=== PATIENT | male | born 1950 | race Caucasian/White ===

== ENCOUNTER 2020-07-16 11:13 | Outpatient (REF) | payer MEDICARE, SELFPAY ==
--- NOTE | 2020-07-16 11:21 | XR_ITS ---
EXAMINATION: XR RIBS, BILATERAL CLINICAL INFORMATION: pleurodynia. COMPARISON: None TECHNIQUE: 3 views of the bilateral ribs were obtained. FINDINGS: Lungs are clear. No consolidation, pneumothorax, or pleural effusion. The cardiomediastinal silhouette and pulmonary vasculature are normal. Osseous structures are unremarkable. Ribs are intact. No fractures are identified. The upper abdomen there is a rounded calcification compatible with gallstone unchanged compared to prior. XR/XR ribs BI 3V IMPRESSION: No acute disease.
== END 2020-07-16 11:14 | disposition home or self-care (01) ==
LOC: HO.XRAY 11:13
PROVIDERS: PCP Internal Medicine; Visit Provider Internal Medicine
DX: R07.81 Pleurodynia (principal)
CPT/HCPCS: 71110

== ENCOUNTER → 2021-07-27 13:50 | Outpatient (BNVA) | payer MEDICARE, SELFPAY | PROVIDERS: PCP Internal Medicine; Visit Provider Orthopaedic Surgery | DX: M65.311 Trigger thumb, right thumb (principal) | CPT/HCPCS: 20550; 99202; J1100 ==

== ENCOUNTER 2021-11-26 14:12 | Outpatient (REF) | payer MEDICARE, OTHER, SELFPAY ==
--- NOTE | ~2021-11-26 | XR_ITS ---
EXAMINATION: XR LUMBOSACRAL SPINE CLINICAL INFORMATION: Low back pain COMPARISON: Previous x-ray most recent April 2020 and June 2020 TECHNIQUE: Three views of the lumbosacral spine. FINDINGS: There is mild curvature of the lumbar spine to the right. Bone alignment is otherwise normal. No fracture or dislocation is seen. There is multilevel degenerative spondylosis. Disc spaces are normal. There is lower lumbar spine facet arthritis. There are calcifications projecting over both kidneys questionable for renal stones, largest measuring 1.3 cm projecting over the lower pole the right kidney. There are 2 calcifications in the pelvis questionable for bladder stones, largest measuring 1 x 1.4 cm. This is similar to previous exams. XR/XR lumbar spine 2-3V IMPRESSION: Degenerative changes. Probable bilateral renal and bladder stones.
== END 2021-11-26 14:13 | disposition home or self-care (01) ==
LOC: HO.XRAY 14:12
PROVIDERS: PCP Internal Medicine; Visit Provider Internal Medicine
DX: M54.50 Low back pain, unspecified (principal); Z91.81 History of falling
CPT/HCPCS: 72100

== ENCOUNTER 2022-11-03 11:06 | Outpatient (REF) | payer MEDICARE, SELFPAY ==
[2022-11-03 13:30] LABS: Anion Gap 13 (12-20); Blood Urea Nitrogen 12 mg/dL (9-16); Calcium 9.3 mg/dL (8.4-10.2); Carbon Dioxide 32 mmol/L (22-29); Chloride 98 mmol/L (96-108); Estimated Glomerular Filt Rate > 60; Glucose Random 91 mg/dL (60-115); Magnesium 2.1 mg/dL (1.6-2.6); Potassium 3.4 mmol/L (3.3-5.1); Sodium 140 mmol/L (135-145)
== END 2022-11-03 11:07 | disposition home or self-care (01) ==
LOC: HO.LAB 11:06
PROVIDERS: PCP Internal Medicine; Visit Provider Internal Medicine Cardiovascular Disease
DX: I10 Essential (primary) hypertension (principal)
CPT/HCPCS: 36415; 80048; 83735

== ENCOUNTER 2023-05-04 09:43 | Outpatient (AMB) | payer MEDICARE, SELFPAY ==
[2023-05-04 09:57] VITALS: BP 106/78; PULSE 56; O2SAT 98; BMI 26.1
--- NOTE | 2023-05-04 09:57 | A.OFFPC_ITS ---
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: No Accompanied by: Self / Same As Patient Allergies mirtazapine Adverse Reaction (Intermediate, Verified 05/04/23 10:18) dry mouth, metallic taste bupropion Adverse Reaction (Intermediate, Uncoded 05/04/23 10:36) muscle pain Medication List - Last Reconciled 05/04/23 by Ronen Frances MD alfuzosin ER 10 mg PO DAILY amlodipine 5 mg PO DAILY atorvastatin 40 mg PO DAILY 90 days carisoprodol 350 mg PO TID PRN 90 days dicyclomine 20 mg PO QID dutasteride 0.5 mg PO DAILY 90 days esomeprazole magnesium 40 mg PO DAILY gabapentin 300 mg PO TID 90 days hydrochlorothiazide 25 mg PO DAILY lisinopril 40 mg PO DAILY lorazepam 2 mg PO BID-TID PRN 90 days sertraline 200 mg (2 x 100 mg) PO DAILY 90 days Tobacco use date assessed: 05/04/23 Fall risk assessment: No Falls in past year Last assessed Fall Risk: 05/04/23 Dental Screening Dental Screen Date: 05/04/23 Did you have a dental visit in the last 12 months?: No Did you have a dental problem in the last 6 months where you did not have access to dental care?: No Was dental information given to patient?: Patient has dentist HPI Med review HPI Details Patient comes in today for his follow up visit - has not been back since January 2022 Relates that he was seen by cardiology for follow up about a month or so ago and was advised that his BP was all over the place States that cardiology tried increasing his Amlodipine again up to 5 mg QD and he seems to be tolerating his Rx so far He is still experiencing increased anxiety despite his current Rx (is on Sertraline 200 mg QD) - feels that his Rx used to help but not has not done much lately 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 his , who has a lot of medical issues and she often still wakes up in middle of night crying from pain and as a result, he himself is not getting much sleep at night He also is now admitting that he feels depressed in addition to experiencing increased anxiety often Relates that he often ends up drinking a lot of coffee to stay awake and to help increase his energy level but notes that this has not been successful Was on Mirtazapine 15 Q HS but stopped a while back as it was causing hime to experience increased dry mouth and giving him a metallic aftertaste in his mouth often as well as increased headaches He denies any chest pains, no shortness of breath No nausea / vomiting but reports experiencing a lot of recurrent stomach cramping and pain and frequent loose stools, which he thinks is related to his anxiety He had some follow up labs done at [facility] last month - to discuss his results [facility] Medical History Anxiety Benign essential hypertension Benign prostatic hyperplasia Bruxism Facet arthropathy, cervical GERD without esophagitis Insomnia Irritable bowel syndrome (IBS) Mixed hyperlipidemia Osteoarthritis of spine with radiculopathy, lumbar region Renal calculus Surgical History History of lithotripsy History of tonsillectomy Family History Father Acute CVA (cerebrovascular accident) CVD (cardiovascular disease) Mother Pancreatic cancer Brother Myocardial infarction Brother Hx of CABG CVD (cardiovascular disease) Social History Housing: House Alcohol intake: current Alcohol intake frequency: holidays/special occasions only Patient Tobacco Use Status: Former Tobacco user e-Cigarette/Vaping Use: Never Used Second Hand Smoke Exposure: Yes service: No Current occupational status: retired Cognitive needs: No Hearing needs: No Vision needs: Yes Questionnaire PHQ-9 Over the last 2 weeks, how often have you been bothered by any of the following problems? 1. Little interest or pleasure in doing things: several days 2. Feeling down, depressed, or hopeless: several days 3. Trouble falling or staying asleep, or sleeping too much: not at all 4. Feeling tired or having little energy: not at all 5. Poor appetite or overeating: not at all 6. Feeling bad about yourself - or that you are a failure or have let yourself or your family down: not at all 7. Trouble concentrating on things, such as reading the newspaper or watching television: not at all 8. Moving or speaking so slowly that other people could have noticed. Or the opposite - being so fidgety or restless that you have been moving around a lot more than usual: not at all 9. Thoughts that you would be better off or of hurting yourself in some way: not at all Total score: 2 Depression Screening Interpretation: Positive Depression Screening Follow-up: Existing condition, In treatment and New Medication prescribed 39257 - PHQ-9 Billing: Yes Source: Developed by Drs. Tone Jamil, Bertha Wilkerson, Cyril Duran and colleagues, with an educational jose from [employer]. Thrive Questionnaire Date Thrive assessed: 05/04/23 I am a: Patient What is your living situation today?: I have a steady place to live Within the past 12 months, did the food you bought not last and you didn't have the money to get more?: Never true Within the past 12 months, did you worry whether your food would run out before you got money to buy more?: Never true Do you have trouble paying for medicines?: No Do you have trouble getting transportation to medical appointments?: No Do you have trouble paying your heating and electricity bill?: No Do you have trouble taking care of your child, family member or friend?: No Do you have trouble with day-to-day activities such as bathing, preparing meals, shopping, managing finances, etc.?: No Are you currently unemployed and looking for a job?: No Are you interested in more education?: No Please select the resources that you would like help with: None Currently or been in a relationship where the following occur: no concerns reported AUDIT C Alcohol Use Questionnaire (AUDIT-C) 1. How often do you have a drink containing alcohol?: Monthly or less 2. How many drinks containing alcohol do you have on a typical day when you are drinking?: 1 or 2 3. How often do you have six or more drinks on one occasion?: Never Total Score: 1 Score Reviewed/Action Taken: Yes BHANU-7 AMB Questionnaire BHANU-7 Date BHANU - 7 assessed: 05/04/23 Feeling nervous, anxious, or on edge: 1 = Several days Not being able to stop or control worryin = Not at all Worrying too much about different things: 1 = Several days Trouble relaxin = Not at all Being so restless that it is hard to sit still: 0 = Not at all Becoming easily annoyed or irritable: 0 = Not at all Feeling afraid as if something awful might happen: 0 = Not at all Total BHANU-7 score (0-4 normal; 5-9 mild; 10-14 moderate; 15-21 severe): 2 Source: Developed by Drs. Tone Jamil, Bertha Wilkerson, Cyril Duran and colleagues, with an educational jose from [employer]. Review of Systems Const Denies chills, Reports difficulty sleeping, Reports fatigue, Denies fever(s) and Denies headache(s) ENT Denies dysphagia, Reports dizziness (occasionally - when he moves too quickly), Denies otalgia, Denies headache(s), Denies odynophagia and Denies sore throat Card Denies chest pain, Denies palpitations and Denies dyspnea Resp Denies cough and Denies dyspnea GI Details: states that he has not been eating well or on time lately due to his str ess/anxiety Denies abdominal pain, Reports bloating, Denies constipation, Reports GI cramping (at times), Denies dysphagia, Reports dyspepsia (occasional), Denies heartburn, Reports diarrhea (on and off - due to IBS), Reports loose stools (on and off - due to IBS), Denies nausea, Denies odynophagia and Denies vomiting Denies dysuria, Denies nocturia and Denies urinary frequency Musc Reports arthralgias (right thumb - trigger thumb) and Reports stiffness (right thumb - see HPI) Neuro Reports dizziness (occasionally - when he moves too quickly) and Denies headache(s) Psych Reports anxiety and Reports depression Endo Reports fatigue and Denies palpitations Physical exam (Primary Care) Vital Signs: Last Vital Signs Pulse 56 05/04/23 09:57 BP 106/78 05/04/23 09:57 Pulse Ox 98 05/04/23 09:57 Oxygen Delivery Method Room Air 05/04/23 09:57 BMI result Body Mass Index 26.1 Tobacco/Smoking Status: Tobacco use Status Tobacco use date assessed 05/04/23 05/04/23 10:02 Patient Tobacco Use Status Former Tobacco user 05/04/23 10:02 e-Cigarette/Vaping Use Never Used 05/04/23 10:02 PHQ-9: PHQ-9 Score PHQ-9: Total score 2 05/08/23 17:52 Depression Screening Interpretation: Positive Depression Screening Follow-up: Existing condition, In treatment and New Medication prescribed Thrive Assessment: Date of Thrive Assessment Date Thrive assessed 05/04/23 05/04/23 10:02 Currently or been in a relationship where the following occur: no concerns reported Const General: no acute distress and alert HENMT Throat: Yes posterior oropharynx normal and Yes tonsils normal (no TP congestion noted) Neck Neck: Yes no lymphadenopathy and Yes supple Resp Auscultation: clear to auscultation bilaterally, no rales and no wheezes Cardio Rate: regular rate Rhythm: regular rhythm Heart sounds: no murmurs GI Palpation (GI): Soft to palpation and nontender Auscultation: normal bowel sounds Extrem General: Yes no clubbing, cyanosis or edema Assessment and Plan Assessment & Plan (1) Benign essential hypertension: Code(s): I10 - Essential (primary) hypertension Plan: Reinforced low sodium diet - goal is systolic BP of at least 130 to 140 mm Continue Lisinopril 40 mg QD and HCTZ 25 mg Q AM Patient quit taking Amlodipine last year due to frequent dizziness while on the Rx but was started back on Amlodipine 5 mg QD by cardiology recently because of his poorly-controlled blood pressure - currently seems to be tolerating Amlidipine 5 mg QD so far Patient also appears to have a significant component of white coat syndrome and his systolic BPs seem to be much better consistently at home compared to his readings in the office He is reminded again monitor his BP closely and to follow up with his legal billing coordinator (Dr. Hinojosa) as scheduled (2) Mixed hyperlipidemia: Code(s): E78.2 - Mixed hyperlipidemia Plan: Results of his labs done at [facility] last month reviewed and discussed with patient Reinforced low cholesterol diet Continue Atorvastatin 40 mg QD (3) Irritable bowel syndrome (IBS): Code(s): K58.9 - Irritable bowel syndrome without diarrhea Qualifiers: Irritable bowel syndrome type: unspecified Qualified Code(s): K58.9 - Irritable bowel syndrome without diarrhea Plan: Continue Dicyclomine 20 mg TID PRN States that his IBS has been acting up often lately due to his increased anxiety Follow up with GI (Dr. Herrera) as scheduled (4) Osteoarthritis of spine with radiculopathy, lumbar region: Code(s): M47.26 - Other spondylosis with radiculopathy, lumbar region Plan: Lumbar spine x-rays done a few years ago showed (+) moderate lumbar spondylosis MRI done more recently showed findings suggesting bilateral nerve root impingement Repeat x-rays done in April 2020 revealed (+) degenerative change of the lumbar spine with right-sided facet arthropathy L4-S1 and probable right-sided L5 pars defect. Reinforced activity and weight-lifting restrictions again to help minimize his back pains Follow up with neurosurgery as scheduled (5) Facet arthropathy, cervical: Code(s): M47.812 - Spondylosis without myelopathy or radiculopathy, cervical region Plan: Cervical spine x-rays done initially showed (+) C2 irregularity which may be artifactual in nature but a type III C2 odontoid fracture cannot be excluded at the time Cervical spine CT done subsequently showed a normal appearance of the odontoid process. (+) multilevel cervical spondylosis and hypertrophic facet arthropathy, more prominent on the right side; severe right foraminal narrowing at C3-C4 and small central disc protrusion with significant right-sided facet arthropathy; moderate facet degeneration and shallow central disc protrusion with mild central canal stenosis at C4-C5 and severe right facet arthrosis with moderate right foraminal encroachment and a small central disc protrusion at C5- C6. Follow up with neurosurgery as scheduled (6) GERD without esophagitis: Code(s): K21.9 - Gastro-esophageal reflux disease without esophagitis Plan: Dietary restrictions reinforced Continue Nexium 40 mg QD (7) Benign prostatic hyperplasia: Code(s): N40.0 - Benign prostatic hyperplasia without lower urinary tract symptoms Qualifiers: Lower urinary tract symptom presence: symptoms absent Qualified Code(s): N40.0 - Benign prostatic hyperplasia without lower urinary tract symptoms Plan: Continue Dutasteride 0.5 mg QD Follow up with urology as scheduled (8) Renal calculus: Code(s): N20.0 - Calculus of kidney Plan: Currently asymptomatic - follow up with urology as scheduled (9) Insomnia: Code(s): G47.00 - Insomnia, unspecified Qualifiers: Insomnia type: unspecified Qualified Code(s): G47.00 - Insomnia, unspecified Plan: Sleep hygiene reinforced - is mostly related to his anxiety Was tried on Mirtazapine last year but he could not tolerate Rx due to side effects (10) Anxiety: Code(s): F41.9 - Anxiety disorder, unspecified Plan: Continue Lorazepam 2 mg BID PRN and Sertraline 200 mg QD Will start him additionally on Rexulti 1 mg QD (11) Bruxism: Code(s): 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 Plan: Continue use of mouth/teeth guard when sleeping at night Is mostly related to anxiety and to an old trauma / injury to his jaw - patient used to box (boxing) a lot when he was in middle school and high school Plan Follow up in 2 months Medications: New Rexulti (brexpiprazole) 1 mg PO DAILY 30 days 30 tabs 2RF NS Coding Level of Care Code Est Pt Level 4 (99602) Diagnoses Benign essential hypertension I10 Mixed hyperlipidemia E78.2 Irritable bowel syndrome (IBS) K58.9 Irritable bowel syndrome type: unspecified Osteoarthritis of spine with radiculopathy, lumbar region M47.26 Facet arthropathy, cervical M47.812 GERD without esophagitis K21.9 Benign prostatic hyperplasia N40.0 Lower urinary tract symptom presence: symptoms absent Renal calculus N20.0 Insomnia G47.00 Insomnia type: unspecified Anxiety F41.9 Bruxism F45.8
== END 2023-05-04 10:47 | disposition home or self-care (01) ==
PROVIDERS: PCP Internal Medicine; Visit Provider Internal Medicine
DX: I10 Essential (primary) hypertension (principal); K58.9 Irritable bowel syndrome, unspecified; K21.9 Gastro-esophageal reflux disease without esophagitis; F41.9 Anxiety disorder, unspecified; E78.2 Mixed hyperlipidemia; M47.26 Other spondylosis with radiculopathy, lumbar region; M47.812 Spondylosis without myelopathy or radiculopathy, cervical region; N40.0 Benign prostatic hyperplasia without lower urinary tract symptoms; N20.0 Calculus of kidney; G47.00 Insomnia, unspecified; F45.8 Other somatoform disorders
CPT/HCPCS: 99214

== ENCOUNTER 2023-07-04 13:41 | Outpatient (AMB) | payer MEDICARE, SELFPAY ==
[2023-07-04 13:53] VITALS: BP 140/70; PULSE 71; O2SAT 99; BMI 27.4
--- NOTE | 2023-07-04 13:53 | A.OFFPC_ITS ---
Vital Signs 07/04/23 13:53 Height 5 ft 9 in Weight 185 lb 4 oz BMI 27.4 BP 140/70 H Blood Pressure Location Lt brachial Position Sitting Pulse 71 Pulse Source Pulse Oximeter Pulse Oximetry (%) 99 Oxygen Delivery Method Room Air Intake Visit Reasons: depression/anxiety, hyperlipidemia, IBS Partner Alliance Manager Required: No Accompanied by: Self / Same As Patient Allergies mirtazapine Adverse Reaction (Intermediate, Verified 07/04/23 14:14) dry mouth, metallic taste bupropion Adverse Reaction (Intermediate, Uncoded 07/04/23 14:14) muscle pain Medication List - Last Reconciled 07/04/23 by Ronen Frances MD alfuzosin ER 10 mg PO DAILY amlodipine 5 mg PO DAILY atorvastatin 40 mg PO DAILY 90 days carisoprodol 350 mg PO TID PRN 90 days dicyclomine 20 mg PO QID dutasteride 0.5 mg PO DAILY 90 days esomeprazole magnesium 40 mg PO DAILY gabapentin 300 mg PO TID 90 days hydrochlorothiazide 25 mg PO DAILY lisinopril 40 mg PO DAILY lorazepam 2 mg PO BID-TID PRN 90 days Rexulti (brexpiprazole) 1 mg PO DAILY 30 days NS sertraline 200 mg (2 x 100 mg) PO DAILY 90 days Tobacco use date assessed: 07/04/23 Fall risk assessment: No Falls in past year Last assessed Fall Risk: 07/04/23 Dental Screening Dental Screen Date: 07/04/23 Did you have a dental visit in the last 12 months?: No Did you have a dental problem in the last 6 months where you did not have access to dental care?: No Was dental information given to patient?: No HPI depression/anxiety, hyperlipidemia, IBS HPI Details Patient comes in today for his follow up visit States that he is currently feeling a lot better and thinks that his current medications are finally working and his mood is under much better control - is presently on Sertraline 200 mg QD + Rexulti 1 mg QD He has gained a lot of weight lately and his blood pressure today here in the office is also higher than usual Patient is wondering if his recent weight gain is a side effect of either his Sertraline or Rexulti or both but he also admits that he has been doing a lot of late night eating lately and has been eating a lot of junk foods He denies any headaches or dizziness Denies any chest pains, no SOB No nausea/vomiting, no abdominal pain No change in bowel habits noted PFSH Medical History Bruxism Anxiety Insomnia Renal calculus Irritable bowel syndrome (IBS) Benign prostatic hyperplasia GERD without esophagitis Facet arthropathy, cervical Osteoarthritis of spine with radiculopathy, lumbar region Mixed hyperlipidemia Benign essential hypertension Surgical History History of lithotripsy History of tonsillectomy Family History Father Acute CVA (cerebrovascular accident) CVD (cardiovascular disease) Mother Pancreatic cancer Brother Myocardial infarction Brother Hx of CABG CVD (cardiovascular disease) Social History Housing: House Alcohol intake: current Alcohol intake frequency: holidays/special occasions only Patient Tobacco Use Status: Former Tobacco user e-Cigarette/Vaping Use: Never Used Second Hand Smoke Exposure: Yes service: No Current occupational status: retired Cognitive needs: No Hearing needs: No Vision needs: Yes Questionnaire PHQ-9 Over the last 2 weeks, how often have you been bothered by any of the following problems? Depression Screening Interpretation: Positive Depression Screening Follow-up: Existing condition, In treatment and New Medication prescribed Depression Screening Done: Yes Source: Developed by Drs. Tone Jamil, Cyril Olivarez and colleagues, with an educational jose from [employer]. Thrive Questionnaire Date Thrive assessed: 05/04/23 Currently or been in a relationship where the following occur: no concerns reported BHANU-7 AMB Questionnaire BHANU-7 Date BHANU - 7 assessed: 05/04/23 Source: Developed by Bertha Canales Kurt Kroenke and colleagues, with an educational jose from [employer]. Review of Systems Const Reports difficulty sleeping, Denies fatigue, Denies fever(s) and Denies headache(s) ENT Denies dysphagia, Reports dizziness (occasionally - when he moves too quickly), Denies headache(s), Denies odynophagia and Denies sore throat Card Denies chest pain, Denies palpitations and Denies dyspnea Resp Denies cough and Denies dyspnea GI Details: states that he has not been eating well or on time lately due to his stress/anxiety Denies abdominal pain, Reports bloating, Denies constipation, Denies dysphagia, Reports dyspepsia (occasional), Denies heartburn, Reports diarrhea (on and off - due to IBS), Reports loose stools (on and off - due to IBS), Denies nausea, Denies odynophagia and Denies vomiting Denies dysuria, Denies nocturia and Denies urinary frequency Musc Reports arthralgias (right thumb - trigger thumb) and Reports stiffness (right thumb - see HPI) Neuro Reports dizziness (occasionally - when he moves too quickly) and Denies headache(s) Psych Reports anxiety and Reports depression Endo Denies fatigue and Denies palpitations Physical exam (Primary Care) Vital Signs: Last Vital Signs Pulse 71 07/04/23 13:53 BP 140/70 H 07/04/23 13:53 Pulse Ox 99 07/04/23 13:53 Oxygen Delivery Method Room Air 07/04/23 13:53 BMI result Body Mass Index 27.4 Tobacco/Smoking Status: Tobacco use Status Tobacco use date assessed 07/04/23 07/04/23 13:57 Patient Tobacco Use Status Former Tobacco user 07/04/23 13:57 e-Cigarette/Vaping Use Never Used 07/04/23 13:57 Depression Screening Interpretation: Positive Depression Screening Follow-up: Existing condition, In treatment and New Medication prescribed Thrive Assessment: Date of Thrive Assessment Date Thrive assessed 05/04/23 07/04/23 13:57 Currently or been in a relationship where the following occur: no concerns reported Const General: no acute distress and alert HENMT Throat: Yes posterior oropharynx normal and Yes tonsils normal (no TP congestion noted) Neck Neck: Yes no lymphadenopathy and Yes supple Resp Auscultation: clear to auscultation bilaterally, no rales and no wheezes Cardio Rate: regular rate Rhythm: regular rhythm Heart sounds: no murmurs GI Palpation (GI): Soft to palpation and nontender Auscultation: normal bowel sounds Extrem General: Yes no clubbing, cyanosis or edema Assessment and Plan Assessment & Plan (1) Benign essential hypertension: Code(s): I10 - Essential (primary) hypertension Plan: Reinforced low sodium diet - goal is systolic BP of at least 130 to 140 mm Continue Lisinopril 40 mg QD and HCTZ 25 mg Q AM Patient quit taking Amlodipine last year due to frequent dizziness while on the Rx but was started back on Amlodipine 5 mg QD by cardiology recently because of his poorly-controlled blood pressure - currently seems to be tolerating Amlidipine 5 mg QD so far Patient also appears to have a significant component of white coat syndrome and his systolic BPs seem to be much better consistently at home compared to his readings in the office He is reminded again monitor his BP closely and to follow up with his ship mate (Dr. Hinojosa) as scheduled (2) Mixed hyperlipidemia: Code(s): E78.2 - Mixed hyperlipidemia Plan: Reinforced low cholesterol diet Continue Atorvastatin 40 mg QD Will recheck his labs and fasting lipids in 4 months for follow-up or (3) Irritable bowel syndrome (IBS): Code(s): K58.9 - Irritable bowel syndrome without diarrhea Qualifiers: Irritable bowel syndrome type: unspecified Qualified Code(s): K58.9 - Irritable bowel syndrome without diarrhea Plan: Continue Dicyclomine 20 mg TID PRN States that his IBS has been acting up often lately due to his increased anxiety Follow up with GI (Dr. Herrera) as scheduled (4) Osteoarthritis of spine with radiculopathy, lumbar region: Code(s): M47.26 - Other spondylosis with radiculopathy, lumbar region Plan: Lumbar spine x-rays done a few years ago showed (+) moderate lumbar spondylosis MRI done more recently showed findings suggesting bilateral nerve root impingement Repeat x-rays done in April 2020 revealed (+) degenerative change of the lumbar spine with right-sided facet arthropathy L4-S1 and probable right-sided L5 pars defect. Reinforced activity and weight-lifting restrictions again to help minimize his back pains Follow up with neurosurgery as scheduled (5) Facet arthropathy, cervical: Code(s): M47.812 - Spondylosis without myelopathy or radiculopathy, cervical region Plan: Cervical spine x-rays done initially showed (+) C2 irregularity which may be artifactual in nature but a type III C2 odontoid fracture cannot be excluded at the time Cervical spine CT done subsequently showed a normal appearance of the odontoid process. (+) multilevel cervical spondylosis and hypertrophic facet arthropathy, more prominent on the right side; severe right foraminal narrowing at C3-C4 and small central disc protrusion with significant right-sided facet arthropathy; moderate facet degeneration and shallow central disc protrusion with mild central canal stenosis at C4-C5 and severe right facet arthrosis with moderate right foraminal encroachment and a small central disc protrusion at C5- C6. Follow up with neurosurgery as scheduled (6) GERD without esophagitis: Code(s): K21.9 - Gastro-esophageal reflux disease without esophagitis Plan: Dietary restrictions reinforced Continue Nexium 40 mg QD (7) Benign prostatic hyperplasia: Code(s): N40.0 - Benign prostatic hyperplasia without lower urinary tract symptoms Qualifiers: Lower urinary tract symptom presence: symptoms absent Qualified Code(s): N40.0 - Benign prostatic hyperplasia without lower urinary tract symptoms Plan: Continue Dutasteride 0.5 mg QD Follow up with urology as scheduled (8) Renal calculus: Code(s): N20.0 - Calculus of kidney Plan: Currently asymptomatic - follow up with urology as scheduled (9) Insomnia: Code(s): G47.00 - Insomnia, unspecified Qualifiers: Insomnia type: unspecified Qualified Code(s): G47.00 - Insomnia, unspecified Plan: Sleep hygiene reinforced - is mostly related to his anxiety Was tried on Mirtazapine last year but he could not tolerate Rx due to side effects (10) Anxiety: Code(s): F41.9 - Anxiety disorder, unspecified Plan: Patient feels that his anxiety is finally doing much better on his current meds Continue Lorazepam 2 mg BID PRN, Sertraline 200 mg QD and Rexulti 1 mg QD (11) Bruxism: Code(s): 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 Panel Fast 4 Months E78.00 - Pure hypercholesterolemia, unspecified Lipid Panel 4 Months E78.00 - Pure hypercholesterolemia, unspecified Complete Blood Count Auto Diff 4 Months I10 - Essential (primary) hypertension Coding Level of Care Code Est Pt Level 4 (75006) Diagnoses Benign essential hypertension I10 Mixed hyperlipidemia E78.2 Irritable bowel syndrome, unspecified type K58.9 Irritable bowel syndrome type: unspecified Osteoarthritis of spine with radiculopathy, lumbar region M47.26 Facet arthropathy, cervical M47.812 GERD without esophagitis K21.9 Benign prostatic hyperplasia without lower urinary tract symptoms N40.0 Lower urinary tract symptom presence: symptoms absent Renal calculus N20.0 Insomnia, unspecified type G47.00 Insomnia type: unspecified Anxiety F41.9 Bruxism F45.8
== END 2023-07-04 14:29 | disposition home or self-care (01) ==
PROVIDERS: PCP Internal Medicine; Visit Provider Internal Medicine
DX: I10 Essential (primary) hypertension (principal); E78.2 Mixed hyperlipidemia; K58.9 Irritable bowel syndrome, unspecified; M47.26 Other spondylosis with radiculopathy, lumbar region; M47.812 Spondylosis without myelopathy or radiculopathy, cervical region; K21.9 Gastro-esophageal reflux disease without esophagitis; N40.0 Benign prostatic hyperplasia without lower urinary tract symptoms; N20.0 Calculus of kidney; G47.00 Insomnia, unspecified; F41.9 Anxiety disorder, unspecified; F45.8 Other somatoform disorders
CPT/HCPCS: 99214

== ENCOUNTER 2024-02-14 13:50 | Outpatient (AMB) | payer MEDICARE, SELFPAY ==
[2024-02-14 13:51] VITALS: BP 118/60; PULSE 64; O2SAT 97; BMI 27.8
--- NOTE | 2024-02-14 13:51 | A.OFFPC_ITS ---
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 Required: No Allergies mirtazapine Adverse Reaction (Intermediate, Verified 02/14/24 14:47) dry mouth, metallic taste bupropion Adverse Reaction (Intermediate, Uncoded 02/14/24 14:47) muscle pain Medication List - Last Reconciled 02/14/24 by Ronen Frances MD alfuzosin ER 10 mg PO DAILY amlodipine 5 mg PO DAILY 90 days atorvastatin 40 mg PO DAILY 90 days carisoprodol 350 mg PO TID PRN 90 days dicyclomine 20 mg PO QID dutasteride 0.5 mg PO DAILY 90 days esomeprazole magnesium 40 mg PO DAILY gabapentin 300 mg PO TID 90 days hydrochlorothiazide 25 mg PO DAILY lisinopril 40 mg PO DAILY lorazepam 2 mg PO BID-TID PRN 90 days Rexulti (brexpiprazole) 1 mg PO DAILY 30 days NS sertraline 200 mg (2 x 100 mg) PO DAILY 90 days tizanidine 4 mg PO Q8H PRN 30 days Tobacco use date assessed: 02/14/24 Fall risk assessment: No Falls in past year Last assessed Fall Risk: 02/14/24 Dental Screening Dental Screen Date: 02/14/24 Did you have a dental visit in the last 12 months?: No Did you have a dental problem in the last 6 months where you did not have access to dental care?: No HPI hyperlipidemia, HTN, GERD, mood disorder HPI Details Patient comes in today for his follow up visit States that he feels okay but he is concerned that he has gained a lot of weight over the past few months Is wondering if this is due to his Rexulti He denies any headaches or dizziness Denies any chest pains, no SOB No nausea/vomiting, no abdominal pain No change in bowel habits noted Adds that he has not been able to get his Carisoprodol Rx refilled - states that his pharmacist is telling him that his insurance will no longer approve it and that he has to try a different muscle relaxant States that he even offered to pay for the Rx [id number] but his pharmacist told him they cannot do it He has not had any follow up labs done recently [facility] Medical History (Updated 02/14/24 @ 15:05 by Ronen Frances MD) Overweight (BMI 25.0-29.9) Bruxism Anxiety Insomnia Renal calculus Irritable bowel syndrome (IBS) Benign prostatic hyperplasia GERD without esophagitis Facet arthropathy, cervical Osteoarthritis of spine with radiculopathy, lumbar region Mixed hyperlipidemia Benign essential hypertension Surgical History History of lithotripsy History of tonsillectomy Family History Father Acute CVA (cerebrovascular accident) CVD (cardiovascular disease) Mother Pancreatic cancer Brother Myocardial infarction Brother Hx of CABG CVD (cardiovascular disease) Social History Housing: House Alcohol intake: current Alcohol intake frequency: holidays/special occasions only Patient Tobacco Use Status: Former Tobacco user e-Cigarette/Vaping Use: Never Used Second Hand Smoke Exposure: Yes service: No Current occupational status: retired Cognitive needs: No Hearing needs: No Vision needs: Yes Questionnaire PHQ-9 Over the last 2 weeks, how often have you been bothered by any of the following problems? 1. Little interest or pleasure in doing things: not at all 2. Feeling down, depressed, or hopeless: not at all 3. Trouble falling or staying asleep, or sleeping too much: not at all 4. Feeling tired or having little energy: not at all 5. Poor appetite or overeating: not at all 6. Feeling bad about yourself - or that you are a failure or have let yourself or your family down: not at all 7. Trouble concentrating on things, such as reading the newspaper or watching television: not at all 8. Moving or speaking so slowly that other people could have noticed. Or the opposite - being so fidgety or restless that you have been moving around a lot more than usual: not at all 9. Thoughts that you would be better off or of hurting yourself in some way: not at all Total score: 0 Depression Screening Interpretation: Negative Depression Screening Done: Yes 06144 - PHQ-9 Billing: Yes Source: Developed by Drs. Tone Jamil, Bertha Wilkerson, Cyril Duran and colleagues, with an educational jose from [employer]. Thrive Questionnaire Date Thrive assessed: 02/14/24 I am a: Patient What is your living situation today?: I have a steady place to live Within the past 12 months, did the food you bought not last and you didn't have the money to get more?: Never true Within the past 12 months, did you worry whether your food would run out before you got money to buy more?: Never true Do you have trouble paying for medicines?: No Do you have trouble getting transportation to medical appointments?: No Do you have trouble paying your heating and electricity bill?: No Do you have trouble taking care of your child, family member or friend?: No Do you have trouble with day-to-day activities such as bathing, preparing meals, shopping, managing finances, etc.?: No Are you currently unemployed and looking for a job?: No Are you interested in more education?: No Please select the resources that you would like help with: None Currently or been in a relationship where the following occur: no concerns reported THRIVE Score: 0 AUDIT C Alcohol Use Questionnaire (AUDIT-C) 1. How often do you have a drink containing alcohol?: Monthly or less 2. How many drinks containing alcohol do you have on a typical day when you are drinking?: 1 or 2 3. How often do you have six or more drinks on one occasion?: Never Total Score: 1 Score Reviewed/Action Taken: Yes BHANU-7 AMB Questionnaire BHANU-7 Date BHANU - 7 assessed: 02/14/24 Feeling nervous, anxious, or on edge: 0 = Not at all Not being able to stop or control worryin = Not at all Worrying too much about different things: 0 = Not at all Trouble relaxin = Not at all Being so restless that it is hard to sit still: 0 = Not at all Becoming easily annoyed or irritable: 0 = Not at all Feeling afraid as if something awful might happen: 0 = Not at all Total BHANU-7 score (0-4 normal; 5-9 mild; 10-14 moderate; 15-21 severe): 0 Source: Developed by Drs. Tone Jamil, Bertha Wilkerson, Cyril Duran and colleagues, with an educational jose from [employer]. BHANU-7 Assessment Billing BHANU-7 Assessment Tool: BHANU-7 Assessment 22084 Review of Systems Const Reports difficulty sleeping, Denies fatigue, Denies fever(s) and Denies headache(s) ENT Denies dysphagia, Denies dizziness, Denies otalgia, Denies headache(s), Denies neck pain, Denies odynophagia and Denies sore throat Card Denies chest pain, Denies palpitations and Denies dyspnea Resp Denies cough and Denies dyspnea GI Denies abdominal pain, Denies constipation, Denies dysphagia, Denies heartburn, Reports diarrhea (on and off - due to IBS), Reports loose stools (on and off - due to IBS), Denies nausea, Denies odynophagia and Denies vomiting Denies difficulty urinating, Denies dysuria, Denies nocturia and Denies urinary frequency Musc Denies back pain, Reports arthralgias (right thumb - trigger thumb) and Denies neck pain Skin/Breast Denies rash Neuro Denies dizziness and Denies headache(s) Psych Reports anxiety and Reports depression Endo Denies fatigue and Denies palpitations Physical exam (Primary Care) Vital Signs: Last Vital Signs Pulse 64 02/14/24 13:51 BP 118/60 02/14/24 13:51 Pulse Ox 97 02/14/24 13:51 Oxygen Delivery Method Room Air 02/14/24 13:51 BMI result Body Mass Index 27.8 Tobacco/Smoking Status: Tobacco use Status Tobacco use date assessed 02/14/24 02/14/24 13:52 Patient Tobacco Use Status Former Tobacco user 02/14/24 13:52 e-Cigarette/Vaping Use Never Used 02/14/24 13:52 PHQ-9: PHQ-9 Score PHQ-9: Total score 0 02/14/24 14:09 Depression Screening Interpretation: Negative Thrive Assessment: Date of Thrive Assessment Date Thrive assessed 02/14/24 02/14/24 13:52 Currently or been in a relationship where the following occur: no concerns reported Const General: no acute distress and alert HENMT Ears: TM's normal bilaterally and EAC's normal Throat: Yes posterior oropharynx normal and Yes tonsils normal (no TP congestion noted) Neck Neck: Yes no lymphadenopathy and Yes supple Thyroid: Thyroid normal Resp Auscultation: clear to auscultation bilaterally, no rales and no wheezes Cardio Rate: regular rate Rhythm: regular rhythm Heart sounds: no murmurs GI Palpation (GI): Soft to palpation and nontender Auscultation: normal bowel sounds General: Yes no CVA tenderness Back/Spine/Pelvis Back: no CVA tenderness Thoracic/Lumbar Spine: No lumbar spinal tenderness Skin Rashes: no rashes Extrem General: Yes no clubbing, cyanosis or edema Assessment and Plan Assessment & Plan (1) Benign essential hypertension: Code(s): I10 - Essential (primary) hypertension Plan: Reinforced low sodium diet - goal is systolic BP of at least 130 to 140 mm Continue Lisinopril 40 mg QD, HCTZ 25 mg Q AM and Amlodipine 5 mg QD He is reminded again monitor his BP closely and to follow up with 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 Hinojosa) as scheduled (2) Mixed hyperlipidemia: Code(s): E78.2 - Mixed hyperlipidemia Plan: He has not had any follow up labs done in a while now although he states that he had some labs done for his valve pipe irrigator a couple of months ago over at [facility] Reinforced low cholesterol diet Continue Atorvastatin 40 mg QD Will recheck his labs and fasting lipids LALO for follow-up - lab orders are printed out and handed to patient as he would like to get these done over at [facility] as he lives over in the [facility] (3) Irritable bowel syndrome (IBS): Code(s): K58.9 - Irritable bowel syndrome without diarrhea Qualifiers: Irritable bowel syndrome type: unspecified Qualified Code(s): K58.9 - Irritable bowel syndrome without diarrhea Plan: Continue Dicyclomine 20 mg TID PRN Follow up with GI (Dr. Herrera) as scheduled (4) Osteoarthritis of spine with radiculopathy, lumbar region: Code(s): M47.26 - Other spondylosis with radiculopathy, lumbar region Plan: Lumbar spine x-rays done a few years ago showed (+) moderate lumbar spondylosis MRI done more recently showed findings suggesting bilateral nerve root impingement Repeat x-rays done in April 2020 revealed (+) degenerative change of the lumbar spine with right-sided facet arthropathy L4-S1 and probable right-sided L5 pars defect. Reinforced activity and weight-lifting restrictions again to help minimize his back pains Follow up with neurosurgery as scheduled (5) Facet arthropathy, cervical: Code(s): M47.812 - Spondylosis without myelopathy or radiculopathy, cervical region Plan: Cervical spine x-rays done initially showed (+) C2 irregularity which may be artifactual in nature but a type III C2 odontoid fracture cannot be excluded at the time Cervical spine CT done subsequently showed a normal appearance of the odontoid process. (+) multilevel cervical spondylosis and hypertrophic facet arthropathy, more prominent on the right side; severe right foraminal narrowing at C3-C4 and small central disc protrusion with significant right-sided facet arthropathy; moderate facet degeneration and shallow central disc protrusion with mild central canal stenosis at C4-C5 and severe right facet arthrosis with moderate right foraminal encroachment and a small central disc protrusion at C5- C6. Follow up with neurosurgery as scheduled (6) GERD without esophagitis: Code(s): K21.9 - Gastro-esophageal reflux disease without esophagitis Plan: Dietary restrictions reinforced Continue Nexium 40 mg QD (7) Benign prostatic hyperplasia: Code(s): N40.0 - Benign prostatic hyperplasia without lower urinary tract symptoms Qualifiers: Lower urinary tract symptom presence: symptoms absent Qualified Code(s): N40.0 - Benign prostatic hyperplasia without lower urinary tract symptoms Plan: Continue Dutasteride 0.5 mg QD and Alfusozin ER 10 mg QD Follow up with urology as scheduled (8) Renal calculus: Code(s): N20.0 - Calculus of kidney Plan: Currently asymptomatic - follow up with urology as scheduled (9) Insomnia: Code(s): G47.00 - Insomnia, unspecified Qualifiers: Insomnia type: unspecified Qualified Code(s): G47.00 - Insomnia, unspecified Plan: Sleep hygiene reinforced - is mostly related to his anxiety Was tried on Mirtazapine last year but he could not tolerate Rx due to side effects (10) Anxiety: Code(s): F41.9 - Anxiety disorder, unspecified Plan: Patient feels that his anxiety is finally doing much better on his current meds Continue Lorazepam 2 mg BID PRN, Sertraline 200 mg QD and Rexulti 1 mg QD (11) Bruxism: Code(s): 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 Plan: Continue use of mouth/teeth guard when sleeping at night Is mostly related to anxiety and to an old trauma / injury to his jaw - patient used to box (boxing) a lot when he was in middle school and high school (12) Overweight (BMI 25.0-29.9): Code(s): E66.3 - Overweight Plan: Reinforced diet/exercise as tolerated/lose weight - he has gained a lot of weight (about 10 pounds) over the past few months Have advised that theoretically, Rexulti can also cause weight gain as it belongs to the class of atypical antipsychotics, which can increase one's appetite I have advised him to try working on his eating habits first and knowing now how the medicine affects him, then he can make a conscious effort of staying away from eating after dinner and late at night If this does not work, then we can try switching him over to a different Rx, which may or may not necessarily help much with his weight at this point Plan Follow up in 4 months Orders: Orders TSH reflex Free T4 Today E78.00 - Pure hypercholesterolemia, unspecified Vitamin D 25-OH Total Today E55.9 - Vitamin D deficiency, unspecified UA CC w/rflx Micro + Cult Today R30.0 - Dysuria Hemoglobin A1c Today R73.01 - Impaired fasting glucose Medications: New tizanidine 4 mg PO Q8H 30 days PRN 90 tabs 0RF muscle spasms Coding Level of Care Code Est Pt Level 4 (37447) Complex EM visit Add On G2211 Diagnoses Benign essential hypertension I10 Mixed hyperlipidemia E78.2 Irritable bowel syndrome, unspecified type K58.9 Irritable bowel syndrome type: unspecified Osteoarthritis of spine with radiculopathy, lumbar region M47.26 Facet arthropathy, cervical M47.812 GERD without esophagitis K21.9 Benign prostatic hyperplasia without lower urinary tract symptoms N40.0 Lower urinary tract symptom presence: symptoms absent Renal calculus N20.0 Insomnia, unspecified type G47.00 Insomnia type: unspecified Anxiety F41.9 Bruxism F45.8 Overweight (BMI 25.0-29.9) E66.3 Additional Codes BHANU-7 Assessment Billing - BHANU-7 Assessment Tool: BHANU-7 Assessment 38386 ([id number])
== END 2024-02-14 15:01 | disposition home or self-care (01) ==
PROVIDERS: PCP Internal Medicine; Visit Provider Internal Medicine
DX: I10 Essential (primary) hypertension (principal); E78.2 Mixed hyperlipidemia; K58.9 Irritable bowel syndrome, unspecified; M47.26 Other spondylosis with radiculopathy, lumbar region; M47.812 Spondylosis without myelopathy or radiculopathy, cervical region; K21.9 Gastro-esophageal reflux disease without esophagitis; N40.0 Benign prostatic hyperplasia without lower urinary tract symptoms; N20.0 Calculus of kidney; G47.00 Insomnia, unspecified; F41.9 Anxiety disorder, unspecified; F45.8 Other somatoform disorders; E66.3 Overweight
CPT/HCPCS: 99214; G2211

== ENCOUNTER 2024-06-17 14:30 | Outpatient (AMB) | payer MEDICARE, SELFPAY ==
[2024-06-17 14:58] VITALS: BP 124/72; PULSE 75; O2SAT 98; BMI 27.9
--- NOTE | 2024-06-17 14:58 | MHC.PC.OV ---
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 Required: No Accompanied by: Self / Same As Patient Allergies mirtazapine Adverse Reaction (Intermediate, Verified 10/18/24 15:37) dry mouth, metallic taste tizanidine Adverse Reaction (Intermediate, Verified 10/18/24 15:37) Fatigued bupropion Adverse Reaction (Intermediate, Uncoded 10/18/24 15:37) muscle pain Medication List - Last Reconciled 06/17/24 by Ronen Frances MD alfuzosin ER 10 mg PO DAILY amlodipine 5 mg PO DAILY 90 days atorvastatin 40 mg PO DAILY 90 days baclofen 10 mg PO BID 10 days carisoprodol 350 mg PO TID PRN 90 days cyclobenzaprine 5 mg PO BID PRN 15 days dicyclomine 20 mg PO QID dutasteride 0.5 mg PO DAILY 90 days esomeprazole magnesium 40 mg PO DAILY gabapentin 300 mg PO TID 90 days hydrochlorothiazide 25 mg PO DAILY lisinopril 40 mg PO DAILY lorazepam 2 mg PO BID-TID PRN 90 days methocarbamol 500 mg PO TID PRN Rexulti (brexpiprazole) 1 mg PO DAILY 30 days NS sertraline 200 mg (2 x 100 mg) PO DAILY 90 days Tobacco use date assessed: 06/17/24 Fall risk assessment: No Falls in past year Last assessed Fall Risk: 06/17/24 Dental Screening Dental Screen Date: 06/17/24 Did you have a dental visit in the last 12 months?: No Did you have a dental problem in the last 6 months where you did not have access to dental care?: No Was dental information given to patient?: No HPI 4mth f/u HPI Details Patient comes in today for his follow-up visit States that he feels okay He denies any headaches or dizziness Denies any chest pains, no increased shortness of breath No nausea/vomiting, no abdominal pain No change in bowel habits noted He still has chronic pain over his neck and lower back but states that these have been adequately controlled on his current medications recently He had his follow-up labs done at [facility] last month - to discuss his results [facility] Medical History Overweight (BMI 25.0-29.9) Bruxism Anxiety Insomnia Renal calculus Irritable bowel syndrome (IBS) Benign prostatic hyperplasia GERD without esophagitis Facet arthropathy, cervical Osteoarthritis of spine with radiculopathy, lumbar region Mixed hyperlipidemia Benign essential hypertension Surgical History History of lithotripsy History of tonsillectomy Family History Father Acute CVA (cerebrovascular accident) CVD (cardiovascular disease) Mother Pancreatic cancer Brother Myocardial infarction Brother Hx of CABG CVD (cardiovascular disease) Social History Housing: House Alcohol intake: current Alcohol intake frequency: holidays/special occasions only Patient Tobacco Use Status: Former Tobacco user e-Cigarette/Vaping Use: Never Used Second Hand Smoke Exposure: Yes service: No Current occupational status: retired Cognitive needs: No Hearing needs: No Vision needs: Yes Questionnaire PHQ-9 Over the last 2 weeks, how often have you been bothered by any of the following problems? 1. Little interest or pleasure in doing things: not at all 2. Feeling down, depressed, or hopeless: not at all 3. Trouble falling or staying asleep, or sleeping too much: not at all 4. Feeling tired or having little energy: not at all 5. Poor appetite or overeating: not at all 6. Feeling bad about yourself - or that you are a failure or have let yourself or your family down: not at all 7. Trouble concentrating on things, such as reading the newspaper or watching television: not at all 8. Moving or speaking so slowly that other people could have noticed. Or the opposite - being so fidgety or restless that you have been moving around a lot more than usual: not at all 9. Thoughts that you would be better off or of hurting yourself in some way: not at all Total score: 0 Depression Screening Interpretation: Negative Depression Screening Done: Yes 03415 - PHQ-9 Billing: Yes Source: Developed by Drs. Tone Jamil, Bertha Wilkerson, Cyril Duran and colleagues, with an educational jose from [employer]. Thrive Questionnaire Date Thrive assessed: 06/17/24 I am a: Patient What is your living situation today?: I have a steady place to live Within the past 12 months, did the food you bought not last and you didn't have the money to get more?: Never true Within the past 12 months, did you worry whether your food would run out before you got money to buy more?: Never true Do you have trouble paying for medicines?: No Do you have trouble getting transportation to medical appointments?: No Do you have trouble paying your heating and electricity bill?: No Do you have trouble taking care of your child, family member or friend?: No Do you have trouble with day-to-day activities such as bathing, preparing meals, shopping, managing finances, etc.?: No Are you currently unemployed and looking for a job?: No Are you interested in more education?: No Please select the resources that you would like help with: None Currently or been in a relationship where the following occur: No concerns reported THRIVE Score: 0 AUDIT C Alcohol Use Questionnaire (AUDIT-C) 1. How often do you have a drink containing alcohol?: Monthly or less 2. How many drinks containing alcohol do you have on a typical day when you are drinking?: 1 or 2 Total Score: 1 Score Reviewed/Action Taken: Yes BHANU-7 AMB Questionnaire BHANU-7 Date BHANU - 7 assessed: 06/17/24 Feeling nervous, anxious, or on edge: 0 = Not at all Not being able to stop or control worryin = Not at all Worrying too much about different things: 0 = Not at all Trouble relaxin = Not at all Being so restless that it is hard to sit still: 0 = Not at all Becoming easily annoyed or irritable: 0 = Not at all Feeling afraid as if something awful might happen: 0 = Not at all Total BHANU-7 score (0-4 normal; 5-9 mild; 10-14 moderate; 15-21 severe): 0 Source: Developed by Bertha Canales Kurt Kroenke and colleagues, with an educational jose from [employer]. BHANU-7 Assessment Billing BHANU-7 Assessment Tool: BHANU-7 Assessment 12276 Review of Systems Const Denies chills, Reports difficulty sleeping, Reports fatigue, Denies fever(s) and Denies headache(s) ENT Denies dysphagia, Denies dizziness, Denies otalgia, Denies headache(s), Reports neck pain (chronic), Denies odynophagia and Denies sore throat Card Denies chest pain, Denies palpitations and Denies dyspnea Resp Denies chest congestion, Denies cough, Denies dyspnea and Denies wheezing GI Denies abdominal pain, Denies constipation, Denies dysphagia, Denies heartburn, Reports diarrhea (on and off - due to IBS), Reports loose stools (on and off - due to IBS), Denies nausea, Denies odynophagia and Denies vomiting Denies difficulty urinating, Denies dysuria, Denies nocturia and Denies urinary frequency Musc Reports back pain (chronic) and Reports neck pain (chronic) Skin/Breast Denies rash Neuro Denies dizziness and Denies headache(s) Psych Reports anxiety and Reports depression Endo Reports fatigue and Denies palpitations Aller/Immun Denies wheezing Physical exam (Primary Care) Vital Signs: Last Vital Signs Pulse 75 06/17/24 14:58 BP 124/72 06/17/24 14:58 Pulse Ox 98 06/17/24 14:58 Oxygen Delivery Method Room Air 06/17/24 14:58 BMI result Body Mass Index 27.9 Tobacco/Smoking Status: Tobacco use Status Tobacco use date assessed 06/17/24 06/17/24 14:59 Patient Tobacco Use Status Former Tobacco user 06/17/24 14:59 e-Cigarette/Vaping Use Never Used 06/17/24 14:59 PHQ-9: PHQ-9 Score PHQ-9: Total score 0 06/17/24 15:42 Depression Screening Interpretation: Negative Thrive Assessment: Date of Thrive Assessment Date Thrive assessed 06/17/24 06/17/24 14:59 Currently or been in a relationship where the following occur: No concerns reported Const General: no acute distress and alert HENMT Ears: TM's normal bilaterally and EAC's normal Throat: Yes posterior oropharynx normal and Yes tonsils normal (no TP congestion noted) Neck Neck: No lymphadenopathy Thyroid: Thyroid normal Resp Auscultation: clear to auscultation bilaterally, no rales and no wheezes Cardio Rate: regular rate Rhythm: regular rhythm Heart sounds: no murmurs GI Palpation (GI): Soft to palpation and nontender Auscultation: normal bowel sounds General: Yes no CVA tenderness Back/Spine/Pelvis Back: no CVA tenderness Cervical Spine: Cervical spine tenderness Thoracic/Lumbar Spine: lumbar spinal tenderness Skin Rashes: no rashes Extrem General: Yes no clubbing, cyanosis or edema Coding Level of Care Code Est Pt Level 4 (12329) Diagnoses Benign essential hypertension I10 Mixed hyperlipidemia E78.2 Irritable bowel syndrome, unspecified type K58.9 Irritable bowel syndrome type: unspecified Osteoarthritis of spine with radiculopathy, lumbar region M47.26 Facet arthropathy, cervical M47.812 GERD without esophagitis K21.9 Benign prostatic hyperplasia without lower urinary tract symptoms N40.0 Lower urinary tract symptom presence: symptoms absent Renal calculus N20.0 Insomnia, unspecified type G47.00 Insomnia type: unspecified Anxiety F41.9 Bruxism F45.8 Overweight (BMI 25.0-29.9) E66.3 Additional Codes BHANU-7 Assessment Billing - BHANU-7 Assessment Tool: BHANU-7 Assessment 20913 ([id number]) Assessment & Plan Assessment & Plan (1) Benign essential hypertension: Code(s): I10 - Essential (primary) hypertension Category: Medical Plan: Reinforced low sodium diet - goal is systolic BP of at least 130 to 140 mm Continue Lisinopril 40 mg QD, HCTZ 25 mg Q AM and Amlodipine 5 mg QD He is reminded again to continue monitoring his BP closely (2) Mixed hyperlipidemia: Code(s): E78.2 - Mixed hyperlipidemia Category: Medical Plan: Results of his labs done at [facility] last month reviewed and discussed with patient Reinforced low cholesterol diet Continue Atorvastatin 40 mg QD Will recheck his labs and fasting lipids in 4 months for follow-up (3) Irritable bowel syndrome (IBS): Code(s): K58.9 - Irritable bowel syndrome, unspecified Category: Medical Qualifiers: Irritable bowel syndrome type: unspecified Qualified Code(s): K58.9 - Irritable bowel syndrome without diarrhea Plan: Continue Dicyclomine 20 mg TID PRN Follow up with GI (Dr. Herrera) as scheduled (4) Osteoarthritis of spine with radiculopathy, lumbar region: Code(s): M47.26 - Other spondylosis with radiculopathy, lumbar region Category: Medical Plan: Lumbar spine x-rays done a few years ago showed (+) moderate lumbar spondylosis MRI done more recently revealed findings suggestive of bilateral nerve root impingement Repeat x-rays done in April 2020 revealed (+) degenerative change of the lumbar spine with right-sided facet arthropathy at L4-S1 and probable right-sided L5 pars defect. Reinforced activity and weight-lifting restrictions to minimize aggravating his back pains He has seen neurosurgery in the past but was advised that he has no surgical indication at the time and to follow-up with them again only on an as-needed basis (5) Facet arthropathy, cervical: Code(s): M47.812 - Spondylosis without myelopathy or radiculopathy, cervical region Category: Medical Plan: Cervical spine x-rays done initially showed (+) C2 irregularity which may be artifactual in nature but a type III C2 odontoid fracture cannot be excluded at the time Cervical spine CT done subsequently showed a normal appearance of the odontoid process; (+) multilevel cervical spondylosis and hypertrophic facet arthropathy, more prominent on the right side; severe right foraminal narrowing at C3-C4 and small central disc protrusion with significant right-sided facet arthropathy; moderate facet degeneration and shallow central disc protrusion with mild central canal stenosis at C4-C5 and severe right facet arthrosis with moderate right foraminal encroachment and a small central disc protrusion at C5-C6. He has been seen by neurosurgery in the past but was advised that he has no surgical indication at the time and to see them only on an as-needed basis (6) GERD without esophagitis: Code(s): K21.9 - Gastro-esophageal reflux disease without esophagitis Category: Medical Plan: Dietary restrictions reinforced Continue Nexium 40 mg QD (7) Benign prostatic hyperplasia: Code(s): N40.0 - Benign prostatic hyperplasia without lower urinary tract symptoms Category: Medical Qualifiers: Lower urinary tract symptom presence: symptoms absent Qualified Code(s): N40.0 - Benign prostatic hyperplasia without lower urinary tract symptoms Plan: Continue Dutasteride 0.5 mg QD and Alfusozin ER 10 mg QD Follow up with urology as scheduled (8) Renal calculus: Code(s): N20.0 - Calculus of kidney Category: Medical Plan: Patient currently remains asymptomatic Follow up with urology as scheduled (9) Insomnia: Code(s): G47.00 - Insomnia, unspecified Category: Medical Qualifiers: Insomnia type: unspecified Qualified Code(s): G47.00 - Insomnia, unspecified Plan: This is mostly related to his anxiety Sleep hygiene reinforced Patient was tried on Mirtazapine a couple of years ago but he could not tolerate Rx due to side effects (10) Anxiety: Code(s): F41.9 - Anxiety disorder, unspecified Category: Medical Plan: Patient feels that his anxiety is well-controlled on his current meds Continue Lorazepam 2 mg BID PRN, Sertraline 200 mg QD and Rexulti 1 mg QD (11) Bruxism: Code(s): 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 Category: Medical Plan: Continue use of mouth/teeth guard when sleeping at night This is mostly related to his anxiety and to an old trauma / injury to his jaw - patient used to participate in boxing as a sport frequently when he was in middle school and high school (12) Overweight (BMI 25.0-29.9): Code(s): E66.3 - Overweight Category: Medical Plan: Reinforced diet/exercise as tolerated/lose weight Plan Follow up in 4 months Orders: Orders Complete Blood Count Auto Diff 4 Months D64.9 - Anemia, unspecified TSH reflex Free T4 4 Months E78.00 - Pure hypercholesterolemia, unspecified UA CC w/rflx Micro + Cult 4 Months R30.0 - Dysuria Comprehensive [place]. Panel Fast 4 Months E78.00 - Pure hypercholesterolemia, unspecified Lipid Panel 4 Months E78.00 - Pure hypercholesterolemia, unspecified Vitamin D 25-OH Total 4 Months E55.9 - Vitamin D deficiency, unspecified
== END 2024-06-17 16:00 | disposition home or self-care (01) ==
PROVIDERS: PCP Internal Medicine; Visit Provider Internal Medicine
DX: I10 Essential (primary) hypertension (principal); E78.2 Mixed hyperlipidemia; K58.9 Irritable bowel syndrome, unspecified; M47.26 Other spondylosis with radiculopathy, lumbar region; M47.812 Spondylosis without myelopathy or radiculopathy, cervical region; K21.9 Gastro-esophageal reflux disease without esophagitis; N40.0 Benign prostatic hyperplasia without lower urinary tract symptoms; N20.0 Calculus of kidney; G47.00 Insomnia, unspecified; F41.9 Anxiety disorder, unspecified; F45.8 Other somatoform disorders; E66.3 Overweight

== ENCOUNTER → 2024-06-17 14:30 | Outpatient (BNVA) | payer MEDICARE, SELFPAY | PROVIDERS: PCP Internal Medicine; Visit Provider Internal Medicine | DX: D64.9 Anemia, unspecified (principal); E78.00 Pure hypercholesterolemia, unspecified; R30.0 Dysuria; E55.9 Vitamin D deficiency, unspecified | CPT/HCPCS: 96127; 99212 ==

== ENCOUNTER 2024-10-18 14:35 | Outpatient (AMB) | payer MEDICARE, SELFPAY ==
[2024-10-18 14:50] VITALS: BP 136/82; PULSE 65; O2SAT 98; BMI 28.5
--- NOTE | 2024-10-18 14:50 | A.OFFPC_ITS ---
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 Required: No Accompanied by: Self / Same As Patient Allergies mirtazapine Adverse Reaction (Intermediate, Verified 10/18/24 15:37) dry mouth, metallic taste tizanidine Adverse Reaction (Intermediate, Verified 10/18/24 15:37) Fatigued bupropion Adverse Reaction (Intermediate, Uncoded 10/18/24 15:37) muscle pain Medication List - Last Reconciled 10/18/24 by Ronen Frances MD alfuzosin ER 10 mg PO DAILY amlodipine 5 mg PO DAILY 90 days atorvastatin 40 mg PO DAILY 90 days carisoprodol 350 mg PO TID PRN 90 days dutasteride 0.5 mg PO DAILY 90 days esomeprazole magnesium 40 mg PO DAILY gabapentin 300 mg PO TID 90 days hydrochlorothiazide 25 mg PO DAILY lisinopril 40 mg PO DAILY lorazepam 2 mg PO BID-TID PRN 90 days methocarbamol 500 mg PO TID PRN Rexulti (brexpiprazole) 1 mg PO DAILY 30 days NS sertraline 200 mg (2 x 100 mg) PO DAILY 90 days Tobacco use date assessed: 10/18/24 Fall risk assessment: No Falls in past year Last assessed Fall Risk: 10/18/24 Dental Screening Dental Screen Date: 10/18/24 Did you have a dental visit in the last 12 months?: No Did you have a dental problem in the last 6 months where you did not have access to dental care?: No Was dental information given to patient?: No HPI hyperlipidemia HPI Details Patient comes in today for his follow-up visit States that he still has neck pain (chronic), especially on the right side Notes that his neck pain has increased lately due to the cold weather He has also been experiencing increased lower back pain/spasms as well as increased right hip pain He denies any recent injury or trauma He has also noticed some weight gain lately and he is wondering if his Rexulti is the 1 causing him to gain weight He denies any headaches or dizziness Denies any exertional chest pains or increased shortness of breath No nausea/vomiting, no abdominal pain No change in bowel habits noted Needs his HCTZ Rx refilled His follow-up labs have not been done yet - states that he will get these done over at [facility] tomorrow morning [facility] Medical History Overweight (BMI 25.0-29.9) Bruxism Anxiety Insomnia Renal calculus Irritable bowel syndrome (IBS) Benign prostatic hyperplasia GERD without esophagitis Facet arthropathy, cervical Osteoarthritis of spine with radiculopathy, lumbar region Mixed hyperlipidemia Benign essential hypertension Surgical History History of lithotripsy History of tonsillectomy Family History Father Acute CVA (cerebrovascular accident) CVD (cardiovascular disease) Mother Pancreatic cancer Brother Myocardial infarction Brother Hx of CABG CVD (cardiovascular disease) Social History Housing: House Alcohol intake: current Alcohol intake frequency: holidays/special occasions only Patient Tobacco Use Status: Former Tobacco user e-Cigarette/Vaping Use: Never Used Second Hand Smoke Exposure: Yes service: No Current occupational status: retired Cognitive needs: No Hearing needs: No Vision needs: Yes Questionnaire PHQ-9 Over the last 2 weeks, how often have you been bothered by any of the following problems? 1. Little interest or pleasure in doing things: not at all 2. Feeling down, depressed, or hopeless: not at all 3. Trouble falling or staying asleep, or sleeping too much: not at all 4. Feeling tired or having little energy: not at all 5. Poor appetite or overeating: not at all 6. Feeling bad about yourself - or that you are a failure or have let yourself or your family down: not at all 7. Trouble concentrating on things, such as reading the newspaper or watching television: not at all 8. Moving or speaking so slowly that other people could have noticed. Or the op posite - being so fidgety or restless that you have been moving around a lot more than usual: not at all 9. Thoughts that you would be better off or of hurting yourself in some way: not at all Total score: 0 Depression Screening Interpretation: Negative (is on Rx for depression ) Depression Screening Done: Yes 54137 - PHQ-9 Billing: Yes Source: Developed by Drs. Tone Jamil, Bertha Wilkerson, Cyril Duran and colleagues, with an educational jose from [employer]. Thrive Questionnaire Date Thrive assessed: 10/18/24 I am a: Patient What is your living situation today?: I have a steady place to live Within the past 12 months, did the food you bought not last and you didn't have the money to get more?: Never true Within the past 12 months, did you worry whether your food would run out before you got money to buy more?: Never true Do you have trouble paying for medicines?: No Do you have trouble getting transportation to medical appointments?: No Do you have trouble paying your heating and electricity bill?: No Do you have trouble taking care of your child, family member or friend?: No Do you have trouble with day-to-day activities such as bathing, preparing meals, shopping, managing finances, etc.?: No Are you currently unemployed and looking for a job?: No Are you interested in more education?: No Please select the resources that you would like help with: None Currently or been in a relationship where the following occur: No concerns reported THRIVE Score: 0 AUDIT C Alcohol Use Questionnaire (AUDIT-C) 1. How often do you have a drink containing alcohol?: Monthly or less 2. How many drinks containing alcohol do you have on a typical day when you are drinking?: 1 or 2 3. How often do you have six or more drinks on one occasion?: Never Total Score: 1 Score Reviewed/Action Taken: Yes BHANU-7 AMB Questionnaire BHANU-7 Date BHANU - 7 assessed: 10/18/24 Feeling nervous, anxious, or on edge: 0 = Not at all Not being able to stop or control worryin = Not at all Worrying too much about different things: 0 = Not at all Trouble relaxin = Not at all Being so restless that it is hard to sit still: 0 = Not at all Becoming easily annoyed or irritable: 0 = Not at all Feeling afraid as if something awful might happen: 0 = Not at all Total BHANU-7 score (0-4 normal; 5-9 mild; 10-14 moderate; 15-21 severe): 0 Source: Developed by Drs. Tone Jamil, Bertha Wilkerson, Cyril Duran and colleagues, with an educational jose from [employer]. BHANU-7 Assessment Billing BHANU-7 Assessment Tool: BHANU-7 Assessment 74632 Review of Systems Const Denies chills, Reports difficulty sleeping, Reports fatigue, Denies fever(s), Denies headache(s) and Reports weight gain ENT Denies dysphagia, Denies dizziness, Denies otalgia, Denies headache(s), Reports neck pain (chronic - increased lately with the cold weather), Denies odynophagia and Denies sore throat Card Denies chest pain, Denies palpitations and Denies dyspnea Resp Denies chest congestion, Denies cough and Denies dyspnea GI Denies abdominal pain, Denies constipation, Denies dysphagia, Denies heartburn, Reports diarrhea (on and off - due to IBS), Reports loose stools (on and off - due to IBS), Denies nausea, Denies odynophagia and Denies vomiting Denies difficulty urinating, Denies dysuria, Denies nocturia and Denies urinary frequency Musc Reports back pain (increased over the lower back lately), Reports arthralgias (over the right hip) and Reports neck pain (chronic - increased lately with the cold weather) Skin/Breast Denies rash Neuro Denies dizziness and Denies headache(s) Psych Reports anxiety and Reports depression Endo Reports fatigue and Denies palpitations Physical exam (Primary Care) Vital Signs: Last Vital Signs Pulse 65 10/18/24 14:50 BP 136/82 10/18/24 14:50 Pulse Ox 98 10/18/24 14:50 Oxygen Delivery Method Room Air 10/18/24 14:50 BMI result Body Mass Index 28.5 Tobacco/Smoking Status: Tobacco use Status Tobacco use date assessed 10/18/24 10/18/24 14:52 Patient Tobacco Use Status Former Tobacco user 10/18/24 14:52 e-Cigarette/Vaping Use Never Used 10/18/24 14:52 PHQ-9: PHQ-9 Score PHQ-9: Total score 0 10/18/24 15:46 Depression Screening Interpretation: Negative (is on Rx for depression ) Thrive Assessment: Date of Thrive Assessment Date Thrive assessed 10/18/24 10/18/24 14:52 Currently or been in a relationship where the following occur: No concerns reported Const General: no acute distress and alert HENMT Ears: TM's normal bilaterally and EAC's normal Throat: Yes posterior oropharynx normal and Yes tonsils normal (no TP congestion noted) Neck Neck: No lymphadenopathy Thyroid: Thyroid normal Resp Auscultation: clear to auscultation bilaterally, no rales and no wheezes Cardio Rate: regular rate Rhythm: regular rhythm Heart sounds: no murmurs GI Palpation (GI): Soft to palpation and nontender Auscultation: normal bowel sounds General: Yes no CVA tenderness Back/Spine/Pelvis Back: no CVA tenderness Cervical Spine: Cervical spine tenderness Thoracic/Lumbar Spine: lumbar spinal tenderness Skin Rashes: no rashes Extrem General: Yes no clubbing, cyanosis or edema Coding Level of Care Code Est Pt Level 4 (19361) Diagnoses Mixed hyperlipidemia E78.2 Benign essential hypertension I10 Irritable bowel syndrome, unspecified type K58.9 Irritable bowel syndrome type: unspecified Osteoarthritis of spine with radiculopathy, lumbar region M47.26 Facet arthropathy, cervical M47.812 GERD without esophagitis K21.9 Benign prostatic hyperplasia without lower urinary tract symptoms N40.0 Lower urinary tract symptom presence: symptoms absent Renal calculus N20.0 Right hip pain M25.551 Insomnia, unspecified type G47.00 Insomnia type: unspecified Anxiety F41.9 Bruxism F45.8 Overweight (BMI 25.0-29.9) E66.3 Additional Codes BHANU-7 Assessment Billing - BHANU-7 Assessment Tool: BHANU-7 Assessment 30780 ([id number]) PHQ-9 - 49945 - PHQ-9 Billing: Yes ([id number]) Assessment & Plan Assessment & Plan (1) Mixed hyperlipidemia: Code(s): E78.2 - Mixed hyperlipidemia Category: Medical Plan: Patient was not able to get his follow-up labs done prior to visit today - states that he will try to get them done at [facility] tomorrow Reinforced low cholesterol diet Continue Atorvastatin 40 mg QD Will recheck his labs and fasting lipids in 4 months for follow-up (2) Benign essential hypertension: Code(s): I10 - Essential (primary) hypertension Category: Medical Plan: Reinforced low sodium diet - goal is systolic BP of at least 130 to 140 mm Continue Lisinopril 40 mg QD, HCTZ 25 mg Q AM and Amlodipine 5 mg QD He is reminded again monitor his BP closely and to follow up with his strategic planning director (Dr. Hinojosa) as scheduled (3) Irritable bowel syndrome (IBS): Code(s): K58.9 - Irritable bowel syndrome, unspecified Category: Medical Qualifiers: Irritable bowel syndrome type: unspecified Qualified Code(s): K58.9 - Irritable bowel syndrome without diarrhea Plan: Continue Dicyclomine 20 mg TID PRN Follow up with GI (Dr. Herrera) as scheduled (4) Osteoarthritis of spine with radiculopathy, lumbar region: Code(s): M47.26 - Other spondylosis with radiculopathy, lumbar region Category: Medical Plan: Lumbar spine x-rays done a few years ago showed (+) moderate lumbar spondylosis MRI done more recently revealed findings suggestive of bilateral nerve root impingement Repeat x-rays done in April 2020 revealed (+) degenerative change of the lumbar spine with right-sided facet arthropathy at L4-S1 and probable right-sided L5 pars defect. Reinforced activity and weight-lifting restrictions to minimize aggravating his back pains He has seen neurosurgery in the past but was advised that he has no surgical indication at the time and to follow-up with them again only on an as-needed bas is (5) Facet arthropathy, cervical: Code(s): M47.812 - Spondylosis without myelopathy or radiculopathy, cervical region Category: Medical Plan: Cervical spine x-rays done initially showed (+) C2 irregularity which may be artifactual in nature but a type III C2 odontoid fracture cannot be excluded at the time Cervical spine CT done subsequently showed a normal appearance of the odontoid process; (+) multilevel cervical spondylosis and hypertrophic facet arthropathy, more prominent on the right side; severe right foraminal narrowing at C3-C4 and small central disc protrusion with significant right-sided facet arthropathy; moderate facet degeneration and shallow central disc protrusion with mild central canal stenosis at C4-C5 and severe right facet arthrosis with moderate right foraminal encroachment and a small central disc protrusion at C5-C6. He has been seen by neurosurgery in the past but was advised that he has no surgical indication at the time and to see them only on an as-needed basis (6) GERD without esophagitis: Code(s): K21.9 - Gastro-esophageal reflux disease without esophagitis Category: Medical Plan: Dietary restrictions reinforced Continue Nexium 40 mg QD (7) Benign prostatic hyperplasia: Code(s): N40.0 - Benign prostatic hyperplasia without lower urinary tract symptoms Category: Medical Qualifiers: Lower urinary tract symptom presence: symptoms absent Qualified Code(s): N40.0 - Benign prostatic hyperplasia without lower urinary tract symptoms Plan: Continue Dutasteride 0.5 mg QD and Alfusozin ER 10 mg QD Follow up with urology as scheduled (8) Renal calculus: Code(s): N20.0 - Calculus of kidney Category: Medical Plan: Patient currently remains asymptomatic Follow up with urology as scheduled (9) Right hip pain: Code(s): M25.551 - Pain in right hip Category: Medical Plan: Will send patient for x-rays of the right hip for further evaluation (10) Insomnia: Code(s): G47.00 - Insomnia, unspecified Category: Medical Qualifiers: Insomnia type: unspecified Qualified Code(s): G47.00 - Insomnia, unspecified Plan: This is mostly related to his anxiety Sleep hygiene reinforced - Patient was tried on Mirtazapine a couple of years ago but he could not tolerate Rx due to side effects (11) Anxiety: Code(s): F41.9 - Anxiety disorder, unspecified Category: Medical Plan: Patient feels that his anxiety is well-controlled on his current meds Continue Lorazepam 2 mg BID PRN, Sertraline 200 mg QD and Rexulti 1 mg QD (12) Bruxism: Code(s): 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 Category: Medical Plan: Continue use of mouth/teeth guard when sleeping at night This is mostly related to his anxiety and to an old trauma / injury to his jaw - patient used to participate in boxing as a sport frequently when he was in middle school and high school (13) Overweight (BMI 25.0-29.9): Code(s): E66.3 - Overweight Category: Medical Plan: Reinforced diet/exercise as tolerated/lose weight - he has gained some weight against his his last visit I have advised patient that Rexulti is associated with some weight gain but he can manage this as long as he is aware that the medication can help increase his appetite Plan Follow up in 4 months Orders: Orders Comprehensive [place]. Panel Fast 4 Months E78.00 - Pure hypercholesterolemia, unspecified XR hip RT min 2V 10/18/24 M25.551 - Pain in right hip Complete Blood Count Auto Diff 4 Months D64.9 - Anemia, unspecified Lipid Panel 4 Months E78.00 - Pure hypercholesterolemia, unspecified Medications: Changed From hydrochlorothiazide 25 mg PO DAILY 90 tabs 0RF To hydrochlorothiazide 25 mg PO DAILY 90 days 90 tabs 1RF
== END 2024-10-18 16:02 | disposition home or self-care (01) ==
PROVIDERS: PCP Internal Medicine; Visit Provider Internal Medicine
DX: E78.2 Mixed hyperlipidemia (principal); I10 Essential (primary) hypertension; K58.9 Irritable bowel syndrome, unspecified; M47.26 Other spondylosis with radiculopathy, lumbar region; M47.812 Spondylosis without myelopathy or radiculopathy, cervical region; K21.9 Gastro-esophageal reflux disease without esophagitis; N40.0 Benign prostatic hyperplasia without lower urinary tract symptoms; N20.0 Calculus of kidney; M25.551 Pain in right hip; G47.00 Insomnia, unspecified; F41.9 Anxiety disorder, unspecified; F45.8 Other somatoform disorders; E66.3 Overweight

== ENCOUNTER → 2024-10-18 14:35 | Outpatient (BNVA) | payer MEDICARE, SELFPAY | PROVIDERS: PCP Internal Medicine; Visit Provider Internal Medicine | DX: E78.2 Mixed hyperlipidemia (principal); I10 Essential (primary) hypertension; K58.9 Irritable bowel syndrome, unspecified; M47.26 Other spondylosis with radiculopathy, lumbar region; M47.812 Spondylosis without myelopathy or radiculopathy, cervical region; K21.9 Gastro-esophageal reflux disease without esophagitis; N40.0 Benign prostatic hyperplasia without lower urinary tract symptoms; N20.0 Calculus of kidney; G47.00 Insomnia, unspecified; M25.551 Pain in right hip; F41.9 Anxiety disorder, unspecified; F45.8 Other somatoform disorders; E66.3 Overweight | CPT/HCPCS: 96127; 99212 ==

== ENCOUNTER 2024-11-13 10:40 | Outpatient (REF) | payer MEDICARE, SELFPAY ==
--- NOTE | ~2024-11-13 | XR_ITS ---
EXAMINATION: XR HIP 2 OR MORE VIEWS RIGHT HISTORY: M25.551 - Pain in right hip COMPARISON: There are no prior studies for comparison. FINDINGS: Two views of the right hip are submitted. Osseous mineralization is normal. There is no fracture or dislocation. There is mild to moderate osteoarthritis with joint space narrowing and osteophyte formation. There are rounded calcifications in the pelvis measuring up to 1.4 cm in size which may represent bladder calculi. XR/XR hip RT min 2V IMPRESSION: 1. Mild to moderate osteoarthritis. 2. Possible bladder calculi. Electronically signed by: Tone Phelps MD 11/13/2024 02:35 PM EDT
[2024-11-13 10:51] LABS: MANUAL DIFF FLAG NO
[2024-11-13 11:42] LABS: Basophils Percent Auto 0.6 % (0-2); Eosinophils Absolute Auto 0.2 X10*3/uL (0.0-0.4); Eosinophils Percent Auto 2.6 % (0-4); Hematocrit 41.7 % (42.0-52.0); Hemoglobin 14.7 g/dl (14.0-18.0); Imm Gran Abs Auto 0.02 X10*3/uL (0.00-0.03); Imm Gran Pct Auto 0.3 % (0.0-0.4); Lymphocytes Absolute Auto 2.3 X10*3/uL (1.2-4.9); Lymphocytes Percent Auto 33.6 % (20-40); Mean Corpuscular HGB Conc 35.3 g/dl (31.0-36.0); Mean Corpuscular Volume 90.8 fL (80.0-98.0); Mean Platelet Volume 9.9 fL (9.4-12.4); Monocytes Absolute Auto 0.7 X10*3/uL (0.1-1.2); Monocytes Percent Auto 9.4 % (2-11); Neutrophils Absolute Auto 3.7 x10*3/uL (2.0-8.3); Neutrophils Percent Auto 53.5 % (45-73); Platelet Count 149 X10*3/uL (160-400); Red Blood Count 4.59 X10*6/uL (4.60-5.80); Red Cell Distribution Width 13.8 % (11.0-16.0); White Blood Count 6.9 X10*3/uL (4.8-10.8)
[2024-11-13 11:46] LABS: Appearance Urine Clear; Color Urine Yellow; Glucose Urine UA Negative (Negative); Leukocyte Esterase Urine Negative (Negative); Nitrite Urine Negative (Negative); PH 6.5 (5.0-9.0); Urine Blood Negative (Negative); Urine Ketones Negative (Negative); Urine Protein Negative (Neg-Trace)
[2024-11-13 11:52] LABS: Estimated Average Glucose 103 mg/dL; Hemoglobin A1c % 5.2 % (<6.0)
--- OUTSIDE RECORDS SUMMARY | 2024-11-13 12:21 | XMS_ITS | Clinical Summary ---
Author Organization [facility] it Address [address] [place] [address] Care Team Providers Care Foundry Patternmaker Name Role Phone Ronen Frances MD Primary Care Provider Medications hydroCHLOROthiaz soraya (HYDRODIURIL) 25 mg tablet TAKE 1 TABLET BY MOUTH EVERY DAY 90 tablet 1 10/08/2024 Active Social History Tobacco Use Types Packs/Day Years Used Date Smoking Tobacco: Former Cigarettes Q uit: 09/04/1979 Smokeless Tobacco: Never Alcohol Use Standard Drinks/Week Comments Not Currently 0 (1 standard drink = 0.6 oz pur e alcohol) Sex and Gender Information Value Date Recorded Sex Assigned at Not on file Legal Sex Male 6:36 AM EST Gender Identity Not on file Sexual Orientation Not on file Obstetrics History Last Filed Vital Signs Vital Sign Reading Time Taken Comments Blood Pressure 150/73 03/01/2023 2:08 PM EDT Sit ting L Arm Pulse 71 03/01/2023 2:08 PM EDT Temperature - - Respiratory Rate - - Oxygen Saturation - - Inhaled Oxygen Concentration - - Weight 79.8 kg (176 lb) 03/01/2023 2:08 PM EDT Height 175.3 cm (5' 9 ) 03/01/2023 2:08 PM EDT Body Mass Index 25.99 03/01/2023 2:08 PM EDT Plan of Treatment Upcoming Encounters Date Type Department Care Team (Late st Contact Info) Description 07/30/2025 2:30 PM EST Office Visit [facility] [address] [address] Guy Hinojosa MD [address] [place] [address] Health Maintenance Due Date Last Done Comments DTaP,Tdap,and Td Vaccines (1 - Tdap) 1968 Pneumococcal Vaccine: 50+ Ye ars (1 of 1 - PCV) 1999 Zoster Vaccines (1 of 2) 1999 Abdominal Aortic Aneurysm (A AA) Screen 08/13/2022 Cholesterol Screening (Lipid Panel) 08/13/2022 Colorectal Cancer Screening: Colonoscopy 08/13/2022 Depression Screening 08/13/2022 Falls Risk Assessment 08/13/2022 Hepatitis C Screening 08/13/2022 Medicare Annual Wellness Visit 08/13/2022 Social Influencers of Health Screening 08/13/2022 Hypertension/CHF/CAD Annual BMP Blood Test 08/14/2022 RSV Immunization Patients 60 + Years Old (1 - 1-dose 75+ series) 2024 COVID-19 Vaccine (1 - 2023-2 5 season) 2024 Influenza Vaccine (#1) 2024 HIB Vaccines Aged Out No longer eligi ble based on patient's age to complete this topic HPV Vaccines Aged Out No longer eligi ble based on patient's age to complete this topic Hepatitis A Vaccines Aged Out No long er eligible based on patient's age to complete this topic Hepatitis B Vaccines Aged Out No long er eligible based on patient's age to complete this topic IPV Vaccines Aged Out No longer eligi ble based on patient's age to complete this topic MMR Vaccines Aged Out No longer eligi ble based on patient's age to complete this topic Meningococcal ACWY Vaccine Aged Out N o longer eligible based on patient's age to complete this topic Meningococcal B Vacine Aged Out No lo nger eligible based on patient's age to complete this topic RSV Immunization Patients Un kenneth 20 months Aged Out No longer eligible b ased on patient's age to complete this topic Varicella Vaccines Aged Out No longer eligible based on patient's age to complete this topic Insurance MEDICARE Care Teams Foundry Patternmaker Relationship Specialty Start Date End Date Ronen Frances MD [address] [place] [address] Dr [address] [place], [place] PCP - General 07/16/19
[2024-11-13 12:43] LABS: Alanine Aminotransferase 37 U/L (0-40); Albumin Level 4.4 g/dL (3.5-5.0); Alkaline Phosphatase 62 U/L (39-117); Anion Gap 9 (12-20); Aspartate Amino Transferase 24 U/L (5-37); Bilirubin Total 0.8 mg/dL (0.0-1.0); Blood Urea Nitrogen 14 mg/dL (9-16); Calcium 9.4 mg/dL (8.4-10.2); Carbon Dioxide 31 mmol/L (22-29); Chloride 106 mmol/L (96-108); Cholesterol 194 mg/dL (<200); Estimated Glomerular Filt Rate > 60; Glucose Fasting 92 mg/dL (60-99); HDL Cholesterol 36 mg/dL (>40); Potassium 3.9 mmol/L (3.3-5.1); Sodium 142 mmol/L (135-145); TSH reflex Free T4 1.33 uIU/mL (0.32-4.0); Total Protein 7.6 g/dL (6.5-8.0); Triglycerides 472 mg/dL (<150); Vitamin D 25-OH Total 32.1 ng/mL (>30)
== END 2024-11-13 10:41 | disposition home or self-care (01) ==
LOC: HO.XRAY 10:40
PROVIDERS: PCP Internal Medicine; Visit Provider Internal Medicine
DX: I10 Essential (primary) hypertension (principal); R30.0 Dysuria; R73.01 Impaired fasting glucose; M25.551 Pain in right hip; E78.00 Pure hypercholesterolemia, unspecified; E55.9 Vitamin D deficiency, unspecified
CPT/HCPCS: 36415; 73502; 80053; 80061; 81003; 82306; 83036; 84443; 85025

== ENCOUNTER → 2024-11-13 10:58 | Outpatient (BNV) | payer MEDICARE, SELFPAY | PROVIDERS: PCP Internal Medicine; Visit Provider Radiology Diagnostic Radiology | DX: M16.11 Unilateral primary osteoarthritis, right hip (principal) | CPT/HCPCS: 73502 ==

== ENCOUNTER 2025-03-10 13:29 | Outpatient (AMB) | payer MEDICARE, SELFPAY ==
[2025-03-10 13:30] VITALS: BP 130/76; PULSE 60; O2SAT 97; BMI 27.7
--- NOTE | 2025-03-10 13:30 | MHC.PC.OV ---
Vital Signs 03/10/25 13:30 Height 5 ft 9 in Weight 187 lb 8 oz BMI 27.7 BP 130/76 Blood Pressure Location Lt brachial Position Sitting Pulse 60 Pulse Source Pulse Oximeter Pulse Oximetry (%) 97 Oxygen Delivery Method Room Air Intake Visit Reasons: 4 Months f/u [employer] Teacher Required: No Accompanied by: Self / Same As Patient Allergies mirtazapine Adverse Reaction (Intermediate, Verified 03/10/25 13:44) dry mouth, metallic taste tizanidine Adverse Reaction (Intermediate, Verified 03/10/25 13:44) Fatigued bupropion Adverse Reaction (Intermediate, Uncoded 03/10/25 13:44) muscle pain Medication List - Last Reconciled 03/10/25 by Ronen Frances MD alfuzosin ER 10 mg PO DAILY amlodipine 5 mg PO DAILY 90 days atorvastatin 40 mg PO DAILY 90 days carisoprodol 350 mg PO TID PRN 90 days dutasteride 0.5 mg PO DAILY 90 days esomeprazole magnesium 40 mg PO DAILY gabapentin 300 mg PO TID 90 days hydrochlorothiazide 25 mg PO DAILY 90 days lisinopril 40 mg PO DAILY lorazepam 2 mg PO BID-TID PRN 90 days methocarbamol 500 mg PO TID PRN Rexulti (brexpiprazole) 1 mg PO DAILY 90 days NS sertraline 200 mg (2 x 100 mg) PO DAILY 90 days Tobacco use date assessed: 03/10/25 Fall risk assessment: No Falls in past year Last assessed Fall Risk: 03/10/25 Dental Screening Dental Screen Date: 03/10/25 Did you have a dental visit in the last 12 months?: No Did you have a dental problem in the last 6 months where you did not have access to dental care?: No Was dental information given to patient?: No HPI 4 Months f/u HPI Details Patient comes in today for his follow-up visit States that he feels okay He denies any headaches or dizziness Denies any exertional chest pains or increased shortness of breath No nausea/vomiting, no abdominal pain No change in bowel habits noted He still has chronic neck pains, especially on the right side, but reports that these have been adequately controlled on his current Rx He again does not have any follow up labs done prior to his appointment today but reports that he had labs done back in November 2024 shortly after his last visit here [facility] Medical History Overweight (BMI 25.0-29.9) Bruxism Anxiety Insomnia Renal calculus Irritable bowel syndrome (IBS) Benign prostatic hyperplasia GERD without esophagitis Facet arthropathy, cervical Osteoarthritis of spine with radiculopathy, lumbar region Mixed hyperlipidemia Benign essential hypertension Surgical History History of lithotripsy History of tonsillectomy Family History Father Acute CVA (cerebrovascular accident) CVD (cardiovascular disease) Mother Pancreatic cancer Brother Myocardial infarction Brother Hx of CABG CVD (cardiovascular disease) Social History Housing: House Alcohol intake: current Alcohol intake frequency: holidays/special occasions only Patient Tobacco Use Status: Former Tobacco user e-Cigarette/Vaping Use: Never Used Second Hand Smoke Exposure: Yes service: No Current occupational status: retired Cognitive needs: No Hearing needs: No Vision needs: Yes Questionnaire PHQ-9 Over the last 2 weeks, how often have you been bothered by any of the following problems? 1. Little interest or pleasure in doing things: several days 2. Feeling down, depressed, or hopeless: not at all 3. Trouble falling or staying asleep, or sleeping too much: several days 4. Feeling tired or having little energy: several days 5. Poor appetite or overeating: not at all 6. Feeling bad about yourself - or that you are a failure or have let yourself or your family down: not at all 7. Trouble concentrating on things, such as reading the newspaper or watching television: not at all 8. Moving or speaking so slowly that other people could have noticed. Or the opposite - being so fidgety or restless that you have been moving around a lot more than usual: not at all 9. Thoughts that you would be better off or of hurting yourself in some way: not at all Total score: 3 Depression Screening Interpretation: Positive Depression Screening Follow-up: Existing condition and In treatment Depression Screening Done: Yes 74747 - PHQ-9 Billing: Yes Source: Developed by Drs. Tone Jamil, Cyril Olivarez and colleagues, with an educational jose from [employer]. Thrive Questionnaire Date Thrive assessed: 03/04/25 I am a: Patient What is your living situation today?: I have a steady place to live Within the past 12 months, did the food you bought not last and you didn't have the money to get more?: Never true Within the past 12 months, did you worry whether your food would run out before you got money to buy more?: Never true Do you have trouble paying for medicines?: No Do you have trouble getting transportation to medical appointments?: No Do you have trouble paying your heating and electricity bill?: No Do you have trouble taking care of your child, family member or friend?: No Do you have trouble with day-to-day activities such as bathing, preparing meals, shopping, managing finances, etc.?: No Are you currently unemployed and looking for a job?: No Are you interested in more education?: No Please select the resources that you would like help with: None Currently or been in a relationship where the following occur: No concerns reported THRIVE Score: 0 AUDIT C Alcohol Use Questionnaire (AUDIT-C) 1. How often do you have a drink containing alcohol?: Monthly or less Total Score: 1 Score Reviewed/Action Taken: Yes BHANU-7 AMB Questionnaire BHANU-7 Date BHANU - 7 assessed: 10/18/24 Feeling nervous, anxious, or on edge: 0 = Not at all Not being able to stop or control worryin = Not at all Worrying too much about different things: 0 = Not at all Trouble relaxin = Not at all Being so restless that it is hard to sit still: 0 = Not at all Becoming easily annoyed or irritable: 1 = Several days Feeling afraid as if something awful might happen: 0 = Not at all Total BHANU-7 score (0-4 normal; 5-9 mild; 10-14 moderate; 15-21 severe): 1 Source: Developed by Drs. Tone Jamil, Cyril Olivarez and colleagues, with an educational jose from [employer]. Review of Systems Const Reports difficulty sleeping, Reports fatigue, Denies fever(s) and Denies headache(s) ENT Denies dysphagia, Denies dizziness, Denies otalgia, Denies headache(s), Reports neck pain (chronic - increased lately with the cold weather), Denies odynophagia and Denies sore throat Card Denies chest pain, Denies palpitations and Denies dyspnea Resp Denies chest congestion, Denies cough and Denies dyspnea GI Denies abdominal pain, Denies constipation, Denies dysphagia, Denies heartburn, Reports diarrhea (on and off - due to IBS), Reports loose stools (on and off - due to IBS), Denies nausea, Denies odynophagia and Denies vomiting Denies difficulty urinating, Denies dysuria, Denies nocturia and Denies urinary frequency Musc Reports back pain (increased over the lower back lately), Reports arthralgias (over the right hip) and Reports neck pain (chronic - increased lately with the cold weather) Skin/Breast Denies rash Neuro Denies dizziness and Denies headache(s) Psych Reports anxiety and Reports depression Endo Reports fatigue and Denies palpitations Physical exam (Primary Care) Vital Signs: Last Vital Signs Pulse 60 03/10/25 13:30 BP 130/76 03/10/25 13:30 Pulse Ox 97 03/10/25 13:30 Oxygen Delivery Method Room Air 03/10/25 13:30 BMI result Body Mass Index 27.7 Tobacco/Smoking Status: Tobacco use Status Tobacco use date assessed 03/10/25 03/10/25 13:34 Patient Tobacco Use Status Former Tobacco user 03/10/25 13:34 e-Cigarette/Vaping Use Never Used 03/10/25 13:34 PHQ-9: PHQ-9 Score PHQ-9: Total score 3 03/10/25 13:35 Depression Screening Interpretation: Positive Depression Screening Follow-up: Existing condition and In treatment Thrive Assessment: Date of Thrive Assessment Date Thrive assessed 03/04/25 03/10/25 13:34 Currently or been in a relationship where the following occur: No concerns reported Const General: no acute distress and alert HENMT Ears: TM's normal bilaterally and EAC's normal Throat: Yes posterior oropharynx normal and Yes tonsils normal (no TP congestion noted) Neck Neck: No lymphadenopathy Thyroid: Thyroid normal Resp Auscultation: clear to auscultation bilaterally, no rales and no wheezes Cardio Rate: regular rate Rhythm: regular rhythm Heart sounds: no murmurs GI Palpation (GI): Soft to palpation and nontender Auscultation: normal bowel sounds General: Yes no CVA tenderness Back/Spine/Pelvis Back: no CVA tenderness Cervical Spine: Cervical spine tenderness Thoracic/Lumbar Spine: lumbar spinal tenderness Skin Rashes: no rashes Extrem General: Yes no clubbing, cyanosis or edema Results Reviewed Results Reviewed: Laboratory Tests 11/13/24 11/13/24 10:46 10:50 WBC 6.9 Hgb 14.7 Hct 41.7 L Plt Count 149 L Sodium 142 Potassium 3.9 Creatinine 0.93 Estimated GFR > 60 Fasting Glucose 92 Hemoglobin A1c % 5.2 Calcium 9.4 AST 24 ALT 37 Triglycerides 472 H Cholesterol 194 HDL Cholesterol 36 L 25-OH Vitamin D Total 32.1 TSH 1.33 Ur Specific [place] 1.020 Urine Protein Negative Urine Glucose (UA) Negative Urine Blood Negative Urine Nitrite Negative Ur Leukocyte Esterase Negative Coding Level of Care Code Est Pt Level 4 (11111) Complex EM visit Add On G2211 Diagnoses Mixed hyperlipidemia E78.2 Benign essential hypertension I10 Irritable bowel syndrome, unspecified type K58.9 Irritable bowel syndrome type: unspecified Osteoarthritis of spine with radiculopathy, lumbar region M47.26 Facet arthropathy, cervical M47.812 GERD without esophagitis K21.9 Benign prostatic hyperplasia without lower urinary tract symptoms N40.0 Lower urinary tract symptom presence: symptoms absent Renal calculus N20.0 Right hip pain M25.551 Insomnia, unspecified type G47.00 Insomnia type: unspecified Anxiety F41.9 Bruxism F45.8 Overweight (BMI 25.0-29.9) E66.3 Additional Codes PHQ-9 - 51773 - PHQ-9 Billing: Yes ([id number]) Assessment & Plan Assessment & Plan (1) Mixed hyperlipidemia: Code(s): E78.2 - Mixed hyperlipidemia Category: Medical Plan: Results of his labs done back in November 2024 reviewed and discussed with patient - he was not able to get his labs rechecked more recently Have advised patient that his serum TG level has gone up significantly on his labs done back in November 2024, with his serum TG level up to 472 mg/dl Reinforced low cholesterol diet Continue Atorvastatin 40 mg QD Will recheck his labs and fasting lipids in 4 months for follow-up - he is advised that we may have to start him on Rx for his TG level if his numbers do not improve significantly over the next few months (2) Benign essential hypertension: Code(s): I10 - Essential (primary) hypertension Category: Medical Plan: Reinforced low sodium diet - goal is systolic BP of at least 130 to 140 mm Continue Lisinopril 40 mg QD, HCTZ 25 mg Q AM and Amlodipine 5 mg QD He is reminded again monitor his BP closely and to 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 Hinojosa) as scheduled (3) Irritable bowel syndrome (IBS): Code(s): K58.9 - Irritable bowel syndrome, unspecified Category: Medical Qualifiers: Irritable bowel syndrome type: unspecified Qualified Code(s): K58.9 - Irritable bowel syndrome without diarrhea Plan: Continue Dicyclomine 20 mg TID PRN Follow up with GI (Dr. Herrera) as scheduled (4) Osteoarthritis of spine with radiculopathy, lumbar region: Code(s): M47.26 - Other spondylosis with radiculopathy, lumbar region Category: Medical Plan: Lumbar spine x-rays done a few years ago showed (+) moderate lumbar spondylosis MRI done more recently revealed findings suggestive of bilateral nerve root impingement Repeat x-rays done in April 2020 revealed (+) degenerative change of the lumbar spine with right-sided facet arthropathy at L4-S1 and probable right-sided L5 pars defect. Reinforced activity and weight-lifting restrictions to minimize aggravating his back pains He has seen neurosurgery in the past but was advised that he has no surgical indication at the time and to follow-up with them again only on an as-needed basis (5) Facet arthropathy, cervical: Code(s): M47.812 - Spondylosis without myelopathy or radiculopathy, cervical region Category: Medical Plan: Cervical spine x-rays done initially showed (+) C2 irregularity which may be artifactual in nature but a type III C2 odontoid fracture cannot be excluded at the time Cervical spine CT done subsequently showed a normal appearance of the odontoid process; (+) multilevel cervical spondylosis and hypertrophic facet arthropathy, more prominent on the right side; severe right foraminal narrowing at C3-C4 and small central disc protrusion with significant right-sided facet arthropathy; moderate facet degeneration and shallow central disc protrusion with mild central canal stenosis at C4-C5 and severe right facet arthrosis with moderate right foraminal encroachment and a small central disc protrusion at C5-C6. He has been seen by neurosurgery in the past but was advised that he has no surgical indication at the time and to see them only on an as-needed basis (6) GERD without esophagitis: Code(s): K21.9 - Gastro-esophageal reflux disease without esophagitis Category: Medical Plan: Dietary restrictions reinforced Continue Nexium 40 mg QD (7) Benign prostatic hyperplasia: Code(s): N40.0 - Benign prostatic hyperplasia without lower urinary tract symptoms Category: Medical Qualifiers: Lower urinary tract symptom presence: symptoms absent Qualified Code(s): N40.0 - Benign prostatic hyperplasia without lower urinary tract symptoms Plan: Continue Dutasteride 0.5 mg QD and Alfusozin ER 10 mg QD Follow up with urology as scheduled (8) Renal calculus: Code(s): N20.0 - Calculus of kidney Category: Medical Plan: Patient currently remains asymptomatic Follow up with urology as scheduled (9) Right hip pain: Code(s): M25.551 - Pain in right hip Category: Medical Plan: Will send patient for x-rays of the right hip for further evaluation (10) Insomnia: Code(s): G47.00 - Insomnia, unspecified Category: Medical Qualifiers: Insomnia type: unspecified Qualified Code(s): G47.00 - Insomnia, unspecified Plan: This is mostly related to his anxiety Sleep hygiene reinforced - Patient was tried on Mirtazapine a couple of years ago but he could not tolerate Rx due to side effects (11) Anxiety: Code(s): F41.9 - Anxiety disorder, unspecified Category: Medical Plan: Patient feels that his anxiety is well-controlled on his current meds Continue Lorazepam 2 mg BID PRN, Sertraline 200 mg QD and Rexulti 1 mg QD (12) Bruxism: Code(s): 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 Category: Medical Plan: Continue use of mouth/teeth guard when sleeping at night This is mostly related to his anxiety and to an old trauma / injury to his jaw - patient used to participate in boxing as a sport frequently when he was in middle school and high school (13) Overweight (BMI 25.0-29.9): Code(s): E66.3 - Overweight Category: Medical Plan: Reinforced diet/exercise as tolerated/lose weight Plan Follow up in 4 months Orders: Orders Lipid Panel 4 Months E78.00 - Pure hypercholesterolemia, unspecified Comprehensive Reads Landing. Panel Fast 4 Months E78.00 - Pure hypercholesterolemia, unspecified UA CC w/rflx Micro + Cult 4 Months R30.0 - Dysuria Complete Blood Count Auto Diff 4 Months D64.9 - Anemia, unspecified TSH reflex Free T4 4 Months E78.00 - Pure hypercholesterolemia, unspecified Vitamin D 25-OH Total 4 Months E55.9 - Vitamin D deficiency, unspecified
--- OUTSIDE RECORDS SUMMARY | 2025-03-10 13:53 | XMS_ITS | Encounter Summary ---
Author Organization [facility] Address [address] [place] [address] Care Team Providers Care System Software Developer Name Role Phone Ronen Frances MD Primary Care Provider Encounter Details Date Type Department Care Team (Late st Contact Info) Description 02/10/2025 Lab Requisition [facility] - Main Lab [address] [facility] [place] [address] Ganesh Jonas MD [address] [facility] [address] [place] [phone] Calculus of kidney Social History Tobacco Use Types Packs/Day Years [...] on file Sexual Orientation Not on file documented as of this encounter Plan of Treatment Upcoming Encounters Date Type Department Care Team (Late st Contact Info) Description 07/30/2025 2:30 PM EST Office Visit [facility] [address] [phone] Guy Hinojosa MD 300 [facility] 101 [place], [place] [phone] documented as of this encounter Procedures Procedure Name Priority Date/Time Associated Diagnosis Comments STONE ANALYSIS Routine 02/10/2025 12:00 AM EDT Calculus of kidney documented in this encounter Results * Stone analysis (02/10/2025 12:00 AM EDT) Component(s) See below 02/13/2025 7:24 PM EDT [facility] Comment: 45% Calcium oxalate dihydrate (Weddellite) 50% Carbonate apatite (Dahllite) 5% Protein Stone Weight 0.0690 g 02/13/2025 7:24 PM EDT [facility] Comment: This test was developed and its performance characteristics determined by [facility] in a manner consistent with CLIA requirements. This test has not been cleared or approved by the U.S. Food and Drug Administration. Test performed at [facility], [address], [place] [address] Makenna Forrest MD, PhD - Oil Pump Station Operator Chief Calculus 02/10/2025 02/10/2025 10: 03 AM EDT us Ganesh Jonas MD LAB BODY FLUIDS AND STOOLS ORDER VARINDER Final Result [facility] [address] [place] [address] documented in this encounter Visit Diagnoses Diagnosis Calculus of kidney documented in this encounter Care Teams System Software Developer Relationship Specialty Start Date End Date Ronen Frances MD [address] [place] [address] Dr [address] PRIMITIVO Rios PCP - General 07/16/19 documented as of this encounter
== END 2025-03-10 14:06 | disposition home or self-care (01) ==
LOC: HO.HMCH 13:29
PROVIDERS: PCP Internal Medicine; Visit Provider Internal Medicine
DX: E78.2 Mixed hyperlipidemia (principal); I10 Essential (primary) hypertension; K58.9 Irritable bowel syndrome, unspecified; M47.26 Other spondylosis with radiculopathy, lumbar region; M47.812 Spondylosis without myelopathy or radiculopathy, cervical region; K21.9 Gastro-esophageal reflux disease without esophagitis; N40.0 Benign prostatic hyperplasia without lower urinary tract symptoms; N20.0 Calculus of kidney; M25.551 Pain in right hip; G47.00 Insomnia, unspecified; F41.9 Anxiety disorder, unspecified; F45.8 Other somatoform disorders; E66.3 Overweight

== ENCOUNTER → 2025-03-10 13:29 | Outpatient (BNVA) | payer MEDICARE, SELFPAY | PROVIDERS: PCP Internal Medicine; Visit Provider Internal Medicine | DX: E78.2 Mixed hyperlipidemia (principal); I10 Essential (primary) hypertension; K58.9 Irritable bowel syndrome, unspecified; M47.26 Other spondylosis with radiculopathy, lumbar region; M47.812 Spondylosis without myelopathy or radiculopathy, cervical region; K21.9 Gastro-esophageal reflux disease without esophagitis; N40.0 Benign prostatic hyperplasia without lower urinary tract symptoms; N20.0 Calculus of kidney; M25.551 Pain in right hip; G47.00 Insomnia, unspecified; F41.9 Anxiety disorder, unspecified; F45.8 Other somatoform disorders; E66.3 Overweight; Z68.27 Body mass index [BMI] 27.0-27.9, adult; Z71.3 Dietary counseling and surveillance; Z87.891 Personal history of nicotine dependence | CPT/HCPCS: 96127; 99212 ==

== ENCOUNTER 2025-07-11 12:15 | Outpatient (REF) | payer MEDICARE, SELFPAY ==
[2025-07-11 12:26] LABS: MANUAL DIFF FLAG NO
[2025-07-11 13:37] LABS: Hematocrit 42.6 % (42.0-52.0); Hemoglobin 14.8 g/dl (14.0-18.0); Imm Gran Abs Auto 0.02 X10*3/uL (0.00-0.03); Imm Gran Pct Auto 0.4 % (0.0-0.4); Lymphocytes Absolute Auto 1.5 X10*3/uL (1.2-4.9); Mean Corpuscular HGB Conc 34.7 g/dl (31.0-36.0); Mean Corpuscular Hemoglobin 31.6 pg (27.0-33.0); Mean Corpuscular Volume 90.8 fL (80.0-98.0); NRBC Abs Auto 0.000 X10*3/uL (0.0-0.012); NRBC Pct Auto 0.0 /100WBC (0.0-0.2); Platelet Count 157 X10*3/uL (160-400); Red Blood Count 4.69 X10*6/uL (4.60-5.80); White Blood Count 5.3 X10*3/uL (4.8-10.8)
[2025-07-11 14:09] LABS: Appearance Urine Clear; Glucose Urine UA Negative (Negative); PH 6.0 (5.0-9.0); Specific Gravity - Urine 1.020 (1.005-1.025); UMIC TRIGGER UACC YES
[2025-07-11 14:14] LABS: Alanine Aminotransferase 54 U/L (0-40); Albumin Level 4.8 g/dL (3.5-5.0); Alkaline Phosphatase 77 U/L (39-117); Anion Gap 13 (12-20); Aspartate Amino Transferase 36 U/L (5-37); Blood Urea Nitrogen 15 mg/dL (9-16); Calcium 9.6 mg/dL (8.4-10.2); Carbon Dioxide 26 mmol/L (22-29); Chloride 105 mmol/L (96-108); Cholesterol 309 mg/dL (<200); Estimated Glomerular Filt Rate > 60; HDL Cholesterol 42 mg/dL (>40); Potassium 4.1 mmol/L (3.3-5.1); Sodium 140 mmol/L (135-145); Total Protein 7.6 g/dL (6.5-8.0); Triglycerides 336 mg/dL (<150)
--- OUTSIDE RECORDS SUMMARY | 2025-07-11 14:31 | XMS_ITS ---
Author Name [facility] Organization Unknown Care Team Organization Name Specialty Phone Email Start Date End Da te [facility] Termed, PROVIDER Primary Care 05/11/202304/04
--- OUTSIDE RECORDS SUMMARY | 2025-07-11 14:31 | XMS_ITS | Encounter Summary ---
Author Organization [facility] Address [address] [place] [address] Care Team Providers Care Kiln Placer Name Role Phone Ronen Frances MD Primary Care Provider Encounter Details Date Type Department Care Team (Late st Contact Info) Description 02/10/2025 Lab Requisition [facility] - Main Lab 299 [facility] [place] [address] Ganesh Jonas MD [address] [facility] [address] [facility] [address] [place] [address] Calculus of kidney Social History Tobacco [...] Description 07/30/2025 2:30 PM EST Office Visit [facility] - [address] [facility] [address] [place] [phone] Guy Hinojosa MD [address] [place] [address] [address] [place] [address] documented as of this encounter Procedures Procedure Name Priority Date/Time Associated Diagnosis Comments STONE ANALYSIS Routine 02/10/2025 12:00 AM EDT Calculus of kidney documented in this encounter Results * Stone analysis (02/10/2025 12:00 AM EDT) Component(s) See below 02/13/2025 7:24 PM EDT [facility] Comment: 45% Calcium oxalate dihydrate (Weddellite) 50% Carbonate apatite (Dahllite) 5% Protein Stone Weight 0.0690 g 02/13/2025 7:24 PM EDT [facility] Comment: This test was developed and its performance characteristics determined by [facility] in a manner consistent with CLIA requirements. This test has not been cleared or approved by the U.S. Food and Drug Administration. Test performed at [facility], [address], [place] [address] Makenna Forrest MD, PhD - Pulmonary Disease Specialist Calculus 02/10/2025 02/10/2025 10: 03 AM EDT us Ganesh Jonas MD LAB BODY FLUIDS AND STOOLS ORDER VARINDER Final Result [facility] [address] [place] [address] documented in this encounter Visit Diagnoses Diagnosis Calculus of kidney documented in this encounter Care Teams Kiln Placer Relationship Specialty Start Date End Date Ronen Frances MD [address] [place] [address] [address] PRIMITIVO Rios PCP - General 07/16/19 documented as of this encounter
--- OUTSIDE RECORDS SUMMARY | 2025-07-11 14:31 | XMS_ITS | Clinical Summary ---
Author Organization [address] Address [address] [place] [phone] Phone Care Team Providers Care Epidemiology Investigator Name Role Phone Ronen Frances MD Primary [...] Description 07/30/2025 2:30 PM EST Office Visit [facility] - [facility] [address] [phone] Guy Hinojosa MD [address] [place] [address] Dr [place] [phone] Health Maintenance Due Date Last Done Comments DTaP,Tdap,and Td Vaccines (1 - Tdap) 1968 Pneumococcal Vaccine: 50+ Ye ars (1 of 1 - PCV) 1999 Zoster Vaccines (1 of 2) 1999 Cholesterol Screening (Lipid Panel) 08/13/2022 Falls Risk Assessment 08/13/2022 Hepatitis C Screening 08/13/2022 Medicare Annual Wellness Visit 08/13/2022 Social Influencers of Health Screening 08/13/2022 Hypertension/CHF/CAD Annual BMP Blood Test 08/14/2022 RSV Immunization Adult Patie nts (1 - 1-dose 75+ series) 2024 Depression Screening 09/04/2024 COVID-19 Vaccine (1 - 2023-2 5 season) 2025 Influenza Vaccine (#1) 2025 HIB Vaccines Aged Out No longer eligi [...] age to complete this topic Meningococcal B Vaccine Aged Out No l onger eligible based on patient's age to complete this topic RSV Immunization Patients Un kenneth 20 months Aged Out No longer eligible b ased on patient's age to complete this topic Varicella Vaccines Aged Out No longer eligible based on patient's age to complete this topic Insurance [id number] (Work) [id number] [place] [id number] MEDICARE [facility] Care Teams Epidemiology Investigator Relationship Specialty Start Date End Date Ronen Frances MD [address] [place] [address] [address] Mitchell MD PCP - General 07/16/19
== END 2025-07-11 12:16 | disposition home or self-care (01) ==
LOC: HO.LAB 12:15
PROVIDERS: PCP Internal Medicine; Visit Provider Internal Medicine
DX: E78.00 Pure hypercholesterolemia, unspecified (principal); E55.9 Vitamin D deficiency, unspecified; D64.9 Anemia, unspecified
CPT/HCPCS: 36415; 80053; 80061; 81001; 81003; 82306; 84443; 85025

== ENCOUNTER 2025-07-14 13:27 | Outpatient (AMB) | payer MEDICARE, SELFPAY ==
--- NOTE | 2025-07-14 13:39 | MHC.PC.OV ---
Vital Signs 07/14/25 13:40 Height 5 ft 9 in Weight 188 lb 8 oz BMI 27.8 BP 150/62 H Blood Pressure Location Lt brachial Position Sitting Pulse 78 Pulse Source Pulse Oximeter Pulse Oximetry (%) 97 Oxygen Delivery Method Room Air Intake Visit Reasons: hyperlipidemia, HTN, IBS, cervical spondylosis Network Security Analyst Required: No Accompanied by: Self / Same As Patient Allergies mirtazapine Adverse Reaction (Intermediate, Verified 07/14/25 13:56) dry mouth, metallic taste tizanidine Adverse Reaction (Intermediate, Verified 07/14/25 13:56) Fatigued bupropion Adverse Reaction (Intermediate, Uncoded 07/14/25 13:56) muscle pain Medication List - Last Reconciled 07/14/25 by Ronen Frances MD alfuzosin ER 10 mg PO DAILY amlodipine 5 mg PO DAILY 90 days atorvastatin 40 mg PO DAILY 90 days carisoprodol 350 mg PO TID PRN 90 days dutasteride 0.5 mg PO DAILY 90 days esomeprazole magnesium 40 mg PO DAILY gabapentin 300 mg PO TID 90 days hydrochlorothiazide 25 mg PO DAILY 90 days lisinopril 40 mg PO DAILY lorazepam 2 mg PO BID-TID PRN 90 days methocarbamol 500 mg PO TID PRN Rexulti (brexpiprazole) 1 mg PO DAILY 90 days NS sertraline 200 mg (2 x 100 mg) PO DAILY 90 days Tobacco use date assessed: 07/14/25 Fall risk assessment: No Falls in past year Last assessed Fall Risk: 07/14/25 Dental Screening Dental Screen Date: 07/14/25 Did you have a dental visit in the last 12 months?: No Did you have a dental problem in the last 6 months where you did not have access to dental care?: No Was dental information given to patient?: No HPI hyperlipidemia, HTN, IBS, cervical spondylosis HPI Details Patient comes in today for his follow-up visit States that he feels okay He denies any headaches or dizziness Denies any exertional chest pains or increased shortness of breath No nausea/vomiting, no abdominal pain No change in bowel habits noted States that he still has chronic neck pains, especially on the right side, but that these have remained adequately controlled on his current Rx States that he has been experiencing increased pain over his lower back for the past month or two and more recently, has noticed (+) on and off numbness and tingling sensation over the lateral aspect of his right thigh States that his insurance is now no longer covering his Soma and he would like to know if there are is anything he can take that is stronger than Tylenol but not as strong as the opioids He finally had his follow up labs done here at [facility] a few days ago - to discuss his results [facility] Medical History Overweight (BMI 25.0-29.9) Bruxism Anxiety Insomnia Renal calculus Irritable bowel syndrome (IBS) Benign prostatic hyperplasia GERD without esophagitis Facet arthropathy, cervical Osteoarthritis of spine with radiculopathy, lumbar region Mixed hyperlipidemia Benign essential hypertension Surgical History History of lithotripsy History of tonsillectomy Family History Father Acute CVA (cerebrovascular accident) CVD (cardiovascular disease) Mother Pancreatic cancer Brother Myocardial infarction Brother Hx of CABG CVD (cardiovascular disease) Social History Housing: House Alcohol intake: current Alcohol intake frequency: holidays/special occasions only Patient Tobacco Use Status: Former Tobacco user e-Cigarette/Vaping Use: Never Used Second Hand Smoke Exposure: Yes service: No Current occupational status: retired Cognitive needs: No Hearing needs: No Vision needs: Yes Questionnaire PHQ-9 Over the last 2 weeks, how often have you been bothered by any of the following problems? 1. Little interest or pleasure in doing things: several days 2. Feeling down, depressed, or hopeless: not at all 3. Trouble falling or staying asleep, or sleeping too much: several days 4. Feeling tired or having little energy: several days 5. Poor appetite or overeating: not at all 6. Feeling bad about yourself - or that you are a failure or have let yourself or your family down: not at all 7. Trouble concentrating on things, such as reading the newspaper or watching television: not at all 8. Moving or speaking so slowly that other people could have noticed. Or the opposite - being so fidgety or restless that you have been moving around a lot more than usual: not at all 9. Thoughts that you would be better off or of hurting yourself in some way: not at all Total score: 3 Depression Screening Interpretation: Positive Depression Screening Follow-up: Existing condition and In treatment Depression Screening Done: Yes 43272 - PHQ-9 Billing: Yes Source: Developed by Drs. Tone Jamil, Bertha Wilkerson, Cyril Duran and colleagues, with an educational jose from [employer]. Thrive Questionnaire Date Thrive assessed: 07/14/25 I am a: Patient What is your living situation today?: I have a steady place to live Within the past 12 months, did the food you bought not last and you didn't have the money to get more?: Never true Within the past 12 months, did you worry whether your food would run out before you got money to buy more?: Never true Do you have trouble paying for medicines?: No Do you have trouble getting transportation to medical appointments?: No Do you have trouble paying your heating and electricity bill?: No Do you have trouble taking care of your child, family member or friend?: No Do you have trouble with day-to-day activities such as bathing, preparing meals, shopping, managing finances, etc.?: No Are you currently unemployed and looking for a job?: No Are you interested in more education?: No Please select the resources that you would like help with: None Currently or been in a relationship where the following occur: No concerns reported THRIVE Score: 0 AUDIT C Alcohol Use Questionnaire (AUDIT-C) 1. How often do you have a drink containing alcohol?: Monthly or less 2. How many drinks containing alcohol do you have on a typical day when you are drinking?: 1 or 2 3. How often do you have six or more drinks on one occasion?: Never Total Score: 1 Score Reviewed/Action Taken: Yes BHANU-7 AMB Questionnaire BHANU-7 Date BHANU - 7 assessed: 07/14/25 Feeling nervous, anxious, or on edge: 0 = Not at all Not being able to stop or control worryin = Not at all Worrying too much about different things: 0 = Not at all Trouble relaxin = Not at all Being so restless that it is hard to sit still: 0 = Not at all Becoming easily annoyed or irritable: 1 = Several days Feeling afraid as if something awful might happen: 0 = Not at all Total BHANU-7 score (0-4 normal; 5-9 mild; 10-14 moderate; 15-21 severe): 1 Source: Developed by Drs. Tone Jamil, Bertha Wilkerson, Cyril Duran and colleagues, with an educational jose from [employer]. Physical exam (Primary Care) Vital Signs: Last Vital Signs Pulse 78 07/14/25 13:40 BP 150/62 H 07/14/25 13:40 Pulse Ox 97 07/14/25 13:40 Oxygen Delivery Method Room Air 07/14/25 13:40 BMI result Body Mass Index 27.8 Tobacco/Smoking Status: Tobacco use Status Tobacco use date assessed 07/14/25 07/14/25 13:46 Patient Tobacco Use Status Former Tobacco user 07/14/25 13:46 e-Cigarette/Vaping Use Never Used 07/14/25 13:46 PHQ-9: PHQ-9 Score PHQ-9: Total score 3 07/14/25 13:59 Depression Screening Interpretation: Positive Depression Screening Follow-up: Existing condition and In treatment Thrive Assessment: Date of Thrive Assessment Date Thrive assessed 07/14/25 07/14/25 13:46 Currently or been in a relationship where the following occur: No concerns reported Immunizations pneumoc 20-marva conj-dip cr(PF) 0.5 mL IM syringe Performing Provider: Ronen Frances MD [facility] Administered by: GAGAN Dowling on 07/14/25 14:27 Dose Route Admin Location Dispensed Lot Number Expiration Date [facility] Dipper Operator 0.5 mL IM Left Deltoid 0.5 mL [id number] 05/05/26 [employer] Total Dispensed Waste 0.5 mL 0 % VIS Given Date VIS Provided VIS Publication Date 07/14/25 Single Vaccine 25 Eligibility Eligibility Date Funding Source Not C Eligible 07/14/25 Private Tenivac (PF) 5 Lf unit-2 Lf unit/0.5 mL intramuscular syringe Performing Provider: Ronen Frances MD Performing Location[facility] Administered by: GAGAN Dowling on 07/14/25 14:27 Dose Route Admin Location Dispensed Lot Number Expiration Date [place] Dipper Operator 0.5 mL IM Left Deltoid 0.5 mL [id number] 12/03/26 [id number] [employer] Total Dispensed Waste 0.5 mL 0 % VIS Given Date VIS Provided VIS Publication Date 07/14/25 Single Vaccine 21 Eligibility Eligibility Date Funding Source Not [facility] Eligible 07/14/25 Private Results Reviewed Results Reviewed: Laboratory Tests 07/11/25 07/11/25 12:20 12:24 WBC 5.3 Hgb 14.8 Hct 42.6 Plt Count 157 L Sodium 140 Potassium 4.1 Creatinine 0.90 Estimated GFR > 60 Fasting Glucose 94 Calcium 9.6 AST 36 ALT 54 H Triglycerides 336 H Cholesterol 309 H LDL Cholesterol, Calc 200 H HDL Cholesterol 42 25-OH Vitamin D Total 32.2 TSH 0.77 Ur Specific [place] 1.020 Urine Protein Negative Urine Glucose (UA) Negative Urine Blood Negative Urine Nitrite Negative Ur Leukocyte Esterase Trace H Coding Level of Care Code Est Pt Level 4 (10084) Diagnoses Mixed hyperlipidemia E78.2 Benign essential hypertension I10 Irritable bowel syndrome, unspecified type K58.9 Irritable bowel syndrome type: unspecified Osteoarthritis of spine with radiculopathy, lumbar region M47.26 Facet arthropathy, cervical M47.812 GERD without esophagitis K21.9 Benign prostatic hyperplasia without lower urinary tract symptoms N40.0 Lower urinary tract symptom presence: symptoms absent Renal calculus N20.0 Right hip pain M25.551 Insomnia, unspecified type G47.00 Insomnia type: unspecified Anxiety F41.9 Bruxism F45.8 Overweight (BMI 25.0-29.9) E66.3 Additional Codes PHQ-9 - 08029 - PHQ-9 Billing: Yes ([id number]) Assessment & Plan Assessment & Plan (1) Mixed hyperlipidemia: Code(s): E78.2 - Mixed hyperlipidemia Category: Medical Plan: Results of his labs done a few days ago reviewed and discussed with patient - back in November 2024 reviewed and discussed with patient - he was not able to get his labs rechecked more recently Have advised patient that his serum TG level has gone up significantly on his labs done back in November 2024, with his serum TG level up to 472 mg/dl Reinforced low cholesterol diet Continue Atorvastatin 40 mg QD - admits that he keeps forgetting to take his Rx often since he switched it to bedtime dosing Will recheck his labs and fasting lipids in 4 months for follow-up (2) Benign essential hypertension: Code(s): I10 - Essential (primary) hypertension Category: Medical Plan: Reinforced low sodium diet - goal is systolic BP of at least 130 to 140 mm Continue Lisinopril 40 mg QD, HCTZ 25 mg Q AM and Amlodipine 5 mg QD He is reminded again monitor his BP closely and to follow up with his inspector firearms (Dr. Hinojosa) as scheduled (3) Irritable bowel syndrome (IBS): Code(s): K58.9 - Irritable bowel syndrome, unspecified Category: Medical Qualifiers: Irritable bowel syndrome type: unspecified Qualified Code(s): K58.9 - Irritable bowel syndrome without diarrhea Plan: Continue Dicyclomine 20 mg TID PRN Follow up with GI (Dr. Herrera) as scheduled (4) Osteoarthritis of spine with radiculopathy, lumbar region: Code(s): M47.26 - Other spondylosis with radiculopathy, lumbar region Category: Medical Plan: Lumbar spine x-rays done a few years ago showed (+) moderate lumbar spondylosis MRI done more recently revealed findings suggestive of bilateral nerve root impingement Repeat x-rays done in April 2020 revealed (+) degenerative change of the lumbar spine with right-sided facet arthropathy at L4-S1 and probable right-sided L5 pars defect. Reinforced activity and weight-lifting restrictions to minimize aggravating his back pains He has seen neurosurgery in the past but was advised that he has no surgical indication at the time and to follow-up with them again only on an as-needed basis (5) Facet arthropathy, cervical: Code(s): M47.812 - Spondylosis without myelopathy or radiculopathy, cervical region Category: Medical Plan: Cervical spine x-rays done initially showed (+) C2 irregularity which may be artifactual in nature but a type III C2 odontoid fracture cannot be excluded at the time Cervical spine CT done subsequently showed a normal appearance of the odontoid process; (+) multilevel cervical spondylosis and hypertrophic facet arthropathy, more prominent on the right side; severe right foraminal narrowing at C3-C4 and small central disc protrusion with significant right-sided facet arthropathy; moderate facet degeneration and shallow central disc protrusion with mild central canal stenosis at C4-C5 and severe right facet arthrosis with moderate right foraminal encroachment and a small central disc protrusion at C5-C6. He has been seen by neurosurgery in the past but was advised that he has no surgical indication at the time and to see them only on an as-needed basis (6) GERD without esophagitis: Code(s): K21.9 - Gastro-esophageal reflux disease without esophagitis Category: Medical Plan: Dietary restrictions reinforced Continue Nexium 40 mg QD (7) Benign prostatic hyperplasia: Code(s): N40.0 - Benign prostatic hyperplasia without lower urinary tract symptoms Category: Medical Qualifiers: Lower urinary tract symptom presence: symptoms absent Qualified Code(s): N40.0 - Benign prostatic hyperplasia without lower urinary tract symptoms Plan: Continue Dutasteride 0.5 mg QD and Alfusozin ER 10 mg QD Follow up with urology as scheduled (8) Renal calculus: Code(s): N20.0 - Calculus of kidney Category: Medical Plan: Patient currently remains asymptomatic Follow up with urology as scheduled (9) Right hip pain: Code(s): M25.551 - Pain in right hip Category: Medical Plan: Will send patient for x-rays of the right hip for further evaluation (10) Insomnia: Code(s): G47.00 - Insomnia, unspecified Category: Medical Qualifiers: Insomnia type: unspecified Qualified Code(s): G47.00 - Insomnia, unspecified Plan: This is mostly related to his anxiety Sleep hygiene reinforced - Patient was tried on Mirtazapine a couple of years ago but he could not tolerate Rx due to side effects (11) Anxiety: Code(s): F41.9 - Anxiety disorder, unspecified Category: Medical Plan: Patient feels that his anxiety is well-controlled on his current meds Continue Lorazepam 2 mg BID PRN, Sertraline 200 mg QD and Rexulti 1 mg QD (12) Bruxism: Code(s): 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 Category: Medical Plan: Continue use of mouth/teeth guard when sleeping at night This is mostly related to his anxiety and to an old trauma / injury to his jaw - patient used to participate in boxing as a sport frequently when he was in middle school and high school (13) Overweight (BMI 25.0-29.9): Code(s): E66.3 - Overweight Category: Medical Plan: Reinforced diet/exercise as tolerated/lose weight Plan Per request, Td booster and Prevnar-20 given to patient today Follow up in 4 months Orders: Orders Complete Blood Count Auto Diff 4 Months D64.9 - Anemia, unspecified Comprehensive [place]. Panel Fast 4 Months E78.00 - Pure hypercholesterolemia, unspecified Lipid Panel 4 Months E78.00 - Pure hypercholesterolemia, unspecified Vitamin D 25-OH Total 4 Months E55.9 - Vitamin D deficiency, unspecified Pneumococcal 20 Immunization Today Z23 - Encounter for immunization TSH reflex Free T4 4 Months E78.00 - Pure hypercholesterolemia, unspecified UA CC w/rflx Micro + Cult 4 Months R30.0 - Dysuria Td Immunization Today Z23 - Encounter for immunization Medications: New lidocaine 5% 1 appl topical QID PRN 60 grams 3RF pain 15 days Refilled carisoprodol 350 mg PO TID PRN 270 tabs 0RF muscle spasms 90 days
[2025-07-14 13:40] VITALS: BP 150/62; PULSE 78; O2SAT 97; BMI 27.8
--- OUTSIDE RECORDS SUMMARY | 2025-07-14 15:33 | XMS_ITS | Encounter Summary ---
Author Organization [facility] Address [address] [place] [address] Care Team Providers Care Oxyhydrogen Welder Name Role Phone Ronen Frances MD Primary Care Provider Encounter Details Date Type Department Care Team (Late st Contact Info) Description 02/10/2025 Lab Requisition [facility] - Main Lab [address] [facility] [place] [address] Ganesh Jonas MD [address] [facility] [address] [place] [address] Calculus of kidney Social History Tobacco Use Types Packs/Day Years Used Date Smoking Tobacco: Former Cigarettes 0 Q uit: 09/04/1979 Smokeless Tobacco: Never Alcohol [...] Description 07/30/2025 2:30 PM EST Office Visit [facility] [address] [place] [phone] Guy Hinojosa MD [address] [place] [address] [address] [place] [phone] documented as of this encounter Procedures Procedure Name Priority Date/Time Associated Diagnosis Comments STONE ANALYSIS Routine 02/10/2025 12:00 AM EDT Calculus of kidney documented in this encounter Results * Stone analysis (02/10/2025 12:00 AM EDT) Component(s) See below 02/13/2025 7:24 PM EDT [facility] Comment: 45% Calcium oxalate dihydrate (Weddellite) 50% Carbonate apatite (Dahllite) 5% Protein Stone Weight 0.0690 g 02/13/2025 7:24 PM EDT [facility] Comment: This test was developed and its performance characteristics determined by [facility] in a manner consistent with CLIA requirements. This test has not been cleared or approved by the U.S. Food and Drug Administration. Test performed at [facility], [address], [place] [address] Makenna Forrest MD, PhD - House Servant Calculus 02/10/2025 02/10/2025 10: 03 AM EDT us Ganesh Jonas MD LAB BODY FLUIDS AND STOOLS ORDER VARINDER Final Result [facility] [address] [place] [address] documented in this encounter Visit Diagnoses Diagnosis Calculus of kidney documented in this encounter Care Teams Oxyhydrogen Welder Relationship Specialty Start Date End Date Ronen Frances MD [address] [place] [address] [address] [place] PCP - General 07/16/19 documented as of this encounter
--- OUTSIDE RECORDS SUMMARY | 2025-07-14 15:33 | XMS_ITS | Clinical Summary ---
Author Organization [address] Address [address] [place] [phone] Phone Care Team Providers Care Technical Service Specialist Name Role Phone Ronen Frances MD Primary [...] Description 07/30/2025 2:30 PM EST Office Visit [facility] [address] [facility] [address] [place] [phone] Guy Hinojosa MD [address] [place] [address] [place] [phone] Health Maintenance Due Date Last Done Comments [...] patient's age to complete this topic Insurance [id number] (Work) [id number] [facility] [id number] MEDICARE [facility] Care Teams Technical Service Specialist Relationship Specialty Start Date End Date Ronen Frances MD [address] [place] [address] [address] [place], [place] PCP - General 07/16/19
== END 2025-07-14 14:30 | disposition home or self-care (01) ==
LOC: HO.HMCH 13:28
PROVIDERS: PCP Internal Medicine; Visit Provider Internal Medicine
DX: Z23 Encounter for immunization (principal)

== ENCOUNTER → 2025-07-14 13:27 | Outpatient (BNVA) | payer MEDICARE, SELFPAY | PROVIDERS: PCP Internal Medicine; Visit Provider Internal Medicine | DX: I10 Essential (primary) hypertension (principal); E78.2 Mixed hyperlipidemia; K58.9 Irritable bowel syndrome, unspecified; M47.26 Other spondylosis with radiculopathy, lumbar region; M47.812 Spondylosis without myelopathy or radiculopathy, cervical region; M25.551 Pain in right hip; R20.2 Paresthesia of skin; K21.9 Gastro-esophageal reflux disease without esophagitis; N40.0 Benign prostatic hyperplasia without lower urinary tract symptoms; N20.0 Calculus of kidney; G47.00 Insomnia, unspecified; F41.9 Anxiety disorder, unspecified; E66.3 Overweight; Z23 Encounter for immunization; Z13.31 Encounter for screening for depression; Z13.39 Encounter for screening examination for other mental health and behavioral disorders | CPT/HCPCS: 90471; 90677; 90714; 96127; 99212 ==